=== PATIENT | male | born 1980 | race Caucasian/White ===

== ENCOUNTER 2016-11-03 11:44 | Emergency (ER) | payer BC ==
[2016-11-03 12:03] VITALS: BP 115/76; PULSE 94; TEMP 98.4; BMI 56.2
--- NOTE | 2016-11-03 12:31 | PDOC ---
History of Present Illness - General Chief Complaint: Edema Stated Complaint: SWOLLEN LOWER LIP Time Seen by Provider: 11/03/16 11:57 History Source: Patient Exam Limitations: No Limitations - History of Present Illness Initial Comments: 11/03/16 12:21 This is a 36-year-old male with no significant past medical history who presents emergency department with a complaint of upper lip swelling. Patient states he was in his usual state of health last night, awoke this morning with swelling of his lower lip. Patient denies globus sensation in his throat, denies drooling, denies nausea, denies vomiting. Patient denies stridor, difficulty breathing. Patient denies or urticarial rash. Patient denies new foods although states last night he had M&M's with peanuts, paresis. Better PTdenies any bug bites. Patient does have a history of seasonal ALLERGIES PMH: Denies PSH: Denies Meds: Denies ALL: Penicillin --> Urticaria Social: denies drugs or cigarettes GENERAL/CONSTITUTIONAL: No: fever, chills, weakness, loss of appetite. HEAD, EYES, EARS, NOSE AND THROAT: No: change in vision, ear pain, discharge, sore throat, throat swelling. CARDIOVASCULAR: No: chest pain, lightheadedness, palpitations, syncope RESPIRATORY: No: cough, shortness of breath, wheezing, hemoptysis, stridor. GASTROINTESTINAL: No: nausea, vomiting, diarrhea, abdominal cramping, rectal bleeding, constipation. GENITOURINARY: No: dysuria, hematuria, frequency, urgency, flank pain. MUSCULOSKELETAL: No: back pain, neck pain, joint pain, muscle swelling or pain SKIN: Yes: lip swelling No: lesions, pallor, rash or easy bruising. NEUROLOGIC: No: headache, vertigo, paresthesias, weakness ENDOCRINE: No: unexplained weight gain or loss HEMATOLOGIC/LYMPHATIC: No: anemia, easy bleeding, swelling nodes. GENERAL: The patient is in no acute distress, no respiratory distress. HEAD: Normal with no signs of trauma. EYES: PERRLA, EOMI, sclera anicteric, conjunctiva clear. ENT: Uvula midline, no tongue or pharyngeal edema, no stridor, no difficulty speaking NECK: Normal range of motion, supple LUNGS: Breath sounds equal, clear to auscultation bilaterally. No wheezes. HEART:Regular rate and rhythm, normal S1 and S2 without murmur, rub or gallop. ABDOMEN: Soft, nontender, normoactive bowel sounds. No guarding, no rebound. No masses palpable. EXTREMITIES: Normal range of motion, no edema. No clubbing or cyanosis. No erythema, or tenderness. NEUROLOGICAL: Cranial nerves II through XII grossly intact. Normal speech. No focal neurological deficits. MUSCULOSKELETAL: Back non-tender to palpation, no CVA tenderness SKIN: No urticarial lesions, upper and lower lip swelling, no lacerations Past History - Past Medical History Allergies/Adverse Reactions: Allergies Allergy/AdvReac Type Severity Reaction Status Date / Time Penicillins Allergy Mild "hives-pimp Verified 11/03/16 12:05 les" Home Medications: Ambulatory Orders Sulfamethoxazole/Trimethoprim [Bactrim *Ds*] 1 tab PO BID #14 tablet 08/13/14 Diphenhydramine [Benadryl -] 50 mg PO TID PRN #30 capsule 11/03/16 Oxycodone HCl [Roxicodone] 15 mg PO BID 11/03/16 Prednisone [Deltasone] 60 mg PO DAILY #12 tablet 11/03/16 Anemia: No Asthma: No Cancer: No Cardiac Disorders: No CVA: No COPD: No CHF: No Dementia: No Diabetes: No GI Disorders: Yes (OBESITY) Disorders: No HTN: No Hypercholesterolemia: No Liver Disease: No Seizures: No Thyroid Disease: No - Surgical History Abdominal Surgery: No Appendectomy: No Cardiac Surgery: No Cholecystectomy: No Lung Surgery: No Neurologic Surgery: No Orthopedic Surgery: Yes (right knee sx) - Family Disease History Family Disease History: Heart Disease: Mother (CHF) - Immunization History Immunization Up to Date: Yes - Psycho/Social/Smoking Cessation Hx Anxiety: No Suicidal Ideation: No Smoking Status: Yes Smoking History: Never smoked Have you smoked in the past 12 months: No Number of Cigarettes Smoked Daily: 4 If you are a former smoker, when did you quit?: 11/05/13 Information on smoking cessation initiated: No Hx Alcohol Use: No Drug/Substance Use Hx: No Substance Use Type: None Hx Substance Use Treatment: No *Physical Exam - Vital Signs Last Vital Signs Temp Pulse Resp BP Pulse Ox 98.4 F 94 H 18 115/76 100 11/03/16 11:46 11/03/16 11:46 11/03/16 11:46 11/03/16 11:46 11/03/16 11:46 Medical Decision Making - Medical Decision Making 11/03/16 12:26 This is a 36 yo M presenting to the ER with a complaint of lip swelling Pt is not on an Pola inhibitor He has not prior history of similar symptoms in the past (?hereditary angioedema ) Pt has no prior history of peanut or other allergy Will treat with corticosteroids and benadryl Pt asked to follow up with pmd today or tomorrow Pt given strict return precautions *DC/Admit/Observation/Transfer Diagnosis at time of Disposition: Lip swelling - Discharge Dispostion Disposition: HOME Condition at time of disposition: Stable Admit: No - Referrals Referrals: Reji Covington MD [Staff Physician] - - Patient Instructions Printed Discharge Instructions: DI for General Allergic Reactions Additional Instructions: Sheng Thank you for coming to the ER today Please take medications as prescribed PLEASE MONITOR YOURSELF FOR ANY PROGRESSION OF SYMPTOMS IF SO, YOU MUST RETURN TO THE ER FOR RE EVALUATION AT ANY TIME THIS INCLUDES TONGUE SWELLING, FULLNESS WHEN SWALLOWING, DIFFICULTY SWALLOWING, DIFFICULTY BREATHING, UVULA SWELLING, or anything that makes you concerned You must see your doctor homer (tomorrow preferably) You will need further evaluation to determine if this is an allergic reaction or a hereditary issue - Post Discharge Activity Work/School Note: Back to Work
== END 2016-11-03 13:00 | disposition home or self-care (01) ==
LOC: FER 11:44
DX: R22.0 Localized swelling, mass and lump, head (principal); Z72.0 Tobacco use; E66.9 Obesity, unspecified; Z68.43 Body mass index [BMI] 50.0-59.9, adult
CPT/HCPCS: 99282-25

== ENCOUNTER 2016-12-03 19:03 | Emergency (ER) | payer BC ==
[2016-12-03 19:10] VITALS: BP 152/87; PULSE 94; TEMP 97.7; BMI 51.1
[2016-12-03] MEDS ORDERED: LORATADINE 10 MG TABLET PO ONE (19:47)
[2016-12-03] MEDS ORDERED: LORATADINE 10 MG TABLET ONE (19:50)
--- NOTE | 2016-12-03 19:52 | PDOC ---
History of Present Illness - General Chief Complaint: Rash Stated Complaint: HEADACHE Time Seen by Provider: 12/03/16 19:28 History Source: Patient Exam Limitations: No Limitations - History of Present Illness Initial Comments: 12/03/16 19:55 Chief complaint: Itchiness and burning sensation in back of head and slight swelling under her left eye History of present illness: Patient is a 36 year old obese male here today complaining of burning and itchy sensation to the back of his head that started earlier today and he was home. Patient denies that anyone else in his home has been itchy. Patient denies leaning his head against anything except on his bed. She also has slight swelling under his left eye but denies any sneezing, nasal congestion, or any photophobia or any discharge from eyes. Patient has an appointment with an plastic sheeting cutter in 2 weeks at [facility] due to having had intermittent rashes and swelling of his lips. Patient does not have any swelling currently of his lips or any difficulty swallowing or breathing. Patient denies any new cosmetics, lotions, or medications or any new clothing. He last had swelling of his lips last week. Patient is aware that he is allergic to peanuts denies eating any peanuts or using any Sulaiman products and it today. Timing/Duration: getting worse (burning and itchiness back of head) Severity: mild Associated Symptoms: reports: rash (back of head, under left eye puffiness) Past History - Past Medical History Allergies/Adverse Reactions: Allergies Allergy/AdvReac Type Severity Reaction Status Date / Time Penicillins Allergy Mild "hives-pimp Verified 12/03/16 19:09 les" Home Medications: Ambulatory Orders Sulfamethoxazole/Trimethoprim [Bactrim DS -] 1 tab PO BID #14 tablet 08/13/14 Diphenhydramine [Benadryl Capsule -] 50 mg PO TID PRN #30 capsule 11/03/16 Oxycodone HCl [Roxicodone] 15 mg PO BID 11/03/16 Prednisone [Deltasone] 60 mg PO DAILY #12 tablet 11/03/16 Fexofenadine HCl [Moraima Allergy] 180 mg PO DAILY #10 tablet 12/03/16 Anemia: No Asthma: No Cancer: No Cardiac Disorders: No CVA: No COPD: No CHF: No Dementia: No Diabetes: No GI Disorders: Yes (OBESITY) Disorders: No HTN: No Hypercholesterolemia: No Liver Disease: No Seizures: No Thyroid Disease: No - Surgical History Abdominal Surgery: No Appendectomy: No Cardiac Surgery: No Cholecystectomy: No Lung Surgery: No Neurologic Surgery: No Orthopedic Surgery: Yes (right knee sx) - Family Disease History Family Disease History: Heart Disease: Mother (CHF) - Immunization History Immunization Up to Date: Yes - Psycho/Social/Smoking Cessation Hx Anxiety: No Suicidal Ideation: No Smoking Status: Yes Smoking History: Never smoked Have you smoked in the past 12 months: No Number of Cigarettes Smoked Daily: 4 If you are a former smoker, when did you quit?: 11/05/13 Hx Alcohol Use: No Drug/Substance Use Hx: No Substance Use Type: None Hx Substance Use Treatment: No Review of Systems - Review of Systems Able to Perform ROS?: Yes Constitutional: No: Symptoms Reported HEENTM: No: Symptoms Reported Respiratory: No: Symptoms reported Cardiac (ROS): No: Symptoms Reported ABD/GI: No: Symptoms Reported : No: Symptoms Reported Musculoskeletal: No: Symptoms Reported Integumentary: Yes: Erythema (lower occipital scalp, none raised ), Other ( slight edema left infraorbital ) Neurological: No: Symptoms reported *Physical Exam - Vital Signs Last Vital Signs Temp Pulse Resp BP Pulse Ox 97.7 F 94 H 18 152/87 97 12/03/16 19:06 12/03/16 19:06 12/03/16 19:06 12/03/16 19:06 12/03/16 19:06 - Physical Exam General Appearance: Yes: Appropriately Dressed HEENT: positive: Normal ENT Inspection Neck: negative: Lymphadenopathy (R), Lymphadenopathy (L) Respiratory/Chest: positive: Lungs Clear, Normal Breath Sounds. negative: Chest Tender, Respiratory Distress Cardiovascular: positive: Regular Rhythm, Regular Rate, S1, S2 Integumentary: positive: Erythema (across proximal occipital scalp none raised, ), Swelling (minimal left infraorbital area) Neurologic: positive: Alert, Normal Response, Responsive Medical Decision Making - Medical Decision Making 12/03/16 19:58 Patient is a 36 year old obese male here today complaining of burning and itchy sensation to the back of his head that started earlier today and he was home. Patient denies that anyone else in his home has been itchy. Patient denies leaning his head against anything except on his bed. She also has slight swelling under his left eye but denies any sneezing, nasal congestion, or any photophobia or any discharge from eyes. Patient has an appointment with an plastic sheeting cutter in 2 weeks at [facility] due to having had intermittent rashes and swelling of his lips. Patient does not have any swelling currently of his lips or any difficulty swallowing or breathing. Patient denies any new cosmetics, lotions, or medications or any new clothing. He last had swelling of his lips last week. Patient is aware that he is allergic to peanuts denies eating any peanuts or using any [employer]aiman products and it today. He denies giving any recent haircuts or using any new shampoos. Patient currently is driving. contact dermatitis occipital scalp PLAN: claritin 10 mg daily now moraima 180 mg daily for 10 days Itchiness continues patient was instructed that he can use Benadryl every 4-6 hours as needed for itchiness *DC/Admit/Observation/Transfer Diagnosis at time of Disposition: Dermatitis, contact Qualifiers: Contact dermatitis type: unspecified Contact dermatitis trigger: unspecified trigger Qualified Code(s): L25.9 - Unspecified contact dermatitis, unspecified cause - Discharge Dispostion Disposition: HOME Condition at time of disposition: Stable - Referrals Referrals: Erica Cuello MD [Primary Care Provider] - Reji Covington MD [Staff Physician] - - Patient Instructions Additional Instructions: Follow up with plastic sheeting cutter as soon as possible Return to emergency room if any difficulty swallowing or breathing you may take benadryl as needed as directed by wool fleece grader for itchiness Patient voiced understanding of discharge instructions and all questions were answered
== END 2016-12-03 20:07 | disposition home or self-care (01) ==
LOC: JERFT 19:03
DX: L25.9 Unspecified contact dermatitis, unspecified cause (principal)
CPT/HCPCS: 99281-25

== ENCOUNTER 2016-12-08 23:04 | Emergency (ER) | payer BC ==
[2016-12-08 23:24] VITALS: BP 146/81; PULSE 92; TEMP 97.6; BMI 50.1
[2016-12-09] MEDS ORDERED: diphenhydrAMINE HCL 25 MG CAPSULE (FP) PO ONE ×2 (00:45→00:56)
--- NOTE | 2016-12-09 00:45 | PDOC ---
History of Present Illness - General Chief Complaint: Eye Problem Stated Complaint: EYE PROBLEM Time Seen by Provider: 12/09/16 00:02 - History of Present Illness Initial Comments: 12/09/16 00:45 CHIEF COMPLAINT: eye swelling HISTORY OF PRESENT ILLNESS: 36 yo M with hx of herniated discs presents to ED with left eye swelling since today. Patient reports seeing his primary care doctor today for a "rash on my stomach" and "she was going to prescribe me a cream but she didn't because it has penicillin in it." Later in the evening he noticed his eye swelling. He denies any pain or change in vision. He denies any new medications. PAST MEDICAL HISTORY: Denies past medical history FAMILY HISTORY: Denies SOCIAL HISTORY: Denies tobacco, alcohol, illicit drug use. SURGICAL HISTORY: Denies ALLERGIES: PCN REVIEW OF SYSTEMS General/Constitutional: Denies fever or chills. Denies weakness, weight change. HEENT: Left eye swelling. Denies change in vision. Denies ear pain or discharge. Denies sore throat. Cardiovascular: Denies chest pain or shortness of breath. Respiratory: Denies cough, wheezing, or hemoptysis. Gastrointestinal: Denies nausea, vomiting, diarrhea or constipation. Denies rectal bleeding. Genitourinary: Denies dysuria, frequency, or change in urination. Musculoskeletal: Denies joint or muscle swelling or pain. Denies neck or back pain. Skin: "Rash to my stomach since yesterday." PHYSICAL EXAM General Appearance: Well-appearing, appropriately dressed. No apparent distress. HEENT: Edema inferior to left eye. EOMI, PERRLA, normal ENT inspection, normal voice, TMs normal, pharynx normal. No conjunctival pallor. No photophobia, scleral icterus. Neck: Supple. Trachea midline. No tenderness, rigidity, carotid bruit, stridor , lymphadenopathy, or thyromegaly. Respiratory/Chest: Lungs CTAB. Cardiovascular: RRR. S1, S2. Musculoskeletal/Extremities: Normal inspection. FROM of all extremities, normal capillary refill. Pelvis Stable. No CVA tenderness. No tenderness to extremities, pedal edema, swelling, erythema or deformity. Integumentary: Erythematous rash to right lower abdomen. Appropriate color, dry , warm. Neurologic: undertaker assistant II-XII intact. Fully oriented, alert. Appropriate mood/affect. Motor strength 5/5. No appreciable EOM palsy, facial droop or sensory deficit. 12/09/16 00:52 Past History - Past Medical History Allergies/Adverse Reactions: Allergies Allergy/AdvReac Type Severity Reaction Status Date / Time Penicillins Allergy Mild "hives-pimp Verified 12/03/16 19:09 les" Home Medications: Ambulatory Orders Sulfamethoxazole/Trimethoprim [Bactrim DS -] 1 tab PO BID #14 tablet 08/13/14 Diphenhydramine [Benadryl Capsule -] 50 mg PO TID PRN #30 capsule 11/03/16 Oxycodone HCl [Roxicodone] 15 mg PO BID 11/03/16 Fexofenadine HCl [Ce Allergy] 180 mg PO DAILY #10 tablet 12/03/16 Diphenhydramine HCl [Benadryl -] 25 mg PO Q6H PRN #28 capsule 12/09/16 Prednisone [Deltasone] 60 mg PO DAILY #12 tablet 12/09/16 Anemia: No Asthma: No Cancer: No Cardiac Disorders: No CVA: No COPD: No CHF: No Dementia: No Diabetes: No GI Disorders: Yes (OBESITY) Disorders: No HTN: No Hypercholesterolemia: No Liver Disease: No Seizures: No Thyroid Disease: No - Surgical History Abdominal Surgery: No Appendectomy: No Cardiac Surgery: No Cholecystectomy: No Lung Surgery: No Neurologic Surgery: No Orthopedic Surgery: Yes (right knee sx) - Family Disease History Family Disease History: Heart Disease: Mother (CHF) - Immunization History Immunization Up to Date: Yes - Psycho/Social/Smoking Cessation Hx Anxiety: No Suicidal Ideation: No Smoking Status: Yes Smoking History: Never smoked Have you smoked in the past 12 months: No Number of Cigarettes Smoked Daily: 4 If you are a former smoker, when did you quit?: 11/05/13 Hx Alcohol Use: No Drug/Substance Use Hx: No Substance Use Type: None Hx Substance Use Treatment: No *Physical Exam - Vital Signs Last Vital Signs Temp Pulse Resp BP Pulse Ox 97.6 F 92 H 18 146/81 100 12/08/16 23:20 12/08/16 23:20 12/08/16 23:20 12/08/16 23:20 12/08/16 23:20 Medical Decision Making - Medical Decision Making 12/09/16 00:53 36 yo M with hx of herniated discs presents to ED with left eye swelling since today. Discussed case with attending ER MD Lee. Eye swelling appears secondary to allergy. Will rx Benadryl and prednisone. Advised patient to take medication as prescirbed and f/u with PCP and opthalmology. Patient verbalized understanding and agrees to plan. *DC/Admit/Observation/Transfer Diagnosis at time of Disposition: Allergic eye reaction - Discharge Dispostion Disposition: HOME Condition at time of disposition: Stable Admit: No - Prescriptions Prescriptions: Diphenhydramine HCl [Benadryl -] 25 mg PO Q6H PRN #28 capsule PRN Reason: allergic eye reaction Prednisone [Deltasone] 60 mg PO DAILY #12 tablet - Referrals Referrals: Erica Cuello MD [Primary Care Provider] - Minh Evangelista MD [Staff Physician] - - Patient Instructions Printed Discharge Instructions: DI for Conjunctivitis Additional Instructions: Please follow up with your primary care doctor. If your symptoms persist, please follow up with opthalmology (referral provided). If you experience any headache, pain in your eye, change in vision, dizziness, or any new or worsening symptoms, please return to the ER. - Post Discharge Activity Work/School Note: Back to Work
[2016-12-09] MEDS ORDERED: predniSONE 20 MG TABLET (UD) PO ONE (00:46)
--- NOTE | 2016-12-09 00:47 | PDOC ---
*Physical Exam - Vital Signs Last Vital Signs Temp Pulse Resp BP Pulse Ox 97.6 F 92 H 18 146/81 100 12/08/16 23:20 12/08/16 23:20 12/08/16 23:20 12/08/16 23:20 12/08/16 23:20 Medical Decision Making - Medical Decision Making 12/09/16 00:47 agree with care from MARIE Lux *DC/Admit/Observation/Transfer Diagnosis at time of Disposition: Allergic eye reaction - Discharge Dispostion Disposition: HOME Condition at time of disposition: Stable - Prescriptions Prescriptions: Diphenhydramine HCl [Benadryl -] 25 mg PO Q6H PRN #28 capsule PRN Reason: allergic eye reaction Prednisone [Deltasone] 60 mg PO DAILY #12 tablet - Referrals Referrals: Minh Evangelista MD [Staff Physician] - Erica Cuello MD [Primary Care Provider] - - Patient Instructions Printed Discharge Instructions: DI for Conjunctivitis Additional Instructions: Please follow up with your primary care doctor. If your symptoms persist, please follow up with opthalmology (referral provided). If you experience any headache, pain in your eye, change in vision, dizziness, or any new or worsening symptoms, please return to the ER. - Post Discharge Activity Work/School Note: Back to Work
[2016-12-09] MEDS ORDERED: predniSONE 20 MG TABLET (UD) ONE (00:56)
== END 2016-12-09 01:04 | disposition home or self-care (01) ==
LOC: JER 23:04
DX: T78.49XA Other allergy, initial encounter (principal); X58.XXXA Exposure to other specified factors, initial encounter; Y93.9 Activity, unspecified; E66.9 Obesity, unspecified; Z68.43 Body mass index [BMI] 50.0-59.9, adult; Z87.891 Personal history of nicotine dependence
CPT/HCPCS: 99281-25

== ENCOUNTER 2017-05-12 14:25 | Emergency (ER) | payer OTHER, BC ==
[2017-05-12 14:30] VITALS: BP 165/99; PULSE 84; TEMP 98.6; BMI 51.0
--- NOTE | 2017-05-12 15:29 | PDOC ---
History of Present Illness - General Chief Complaint: Back Pain Stated Complaint: LOWER BACK/LEG PAIN Time Seen by Provider: 05/12/17 15:18 History Source: Patient Exam Limitations: No Limitations - History of Present Illness Initial Comments: 05/12/17 15:27 37 yr male with chronic low back pain followed by pain management. Pt states he had epidural 4 days ago states he has no relief from pain. Pt admits to taking more percocet than prescribed for pain. Pt denies urine or bowel dysfunction. neg numbness or tingling to legs. Pt denies any medical history. or allergies. Past History - Past Medical History Allergies/Adverse Reactions: Allergies Allergy/AdvReac Type Severity Reaction Status Date / Time Penicillins Allergy Mild "hives-pimp Verified 05/12/17 14:27 les" Home Medications: Ambulatory Orders Diphenhydramine [Benadryl Capsule -] 50 mg PO TID PRN #30 capsule 11/03/16 Oxycodone HCl [Roxicodone] 15 mg PO BID 11/03/16 Prednisone [Deltasone] 60 mg PO DAILY #12 tablet 12/09/16 Lidocaine 5% Patch [Lidoderm -] 1 patch TP DAILY #7 patch 05/12/17 Methylprednisolone [Medrol Dose Babar] 4 mg PO ASDIR #21 tablet 05/12/17 Anemia: No Asthma: No Cancer: No Cardiac Disorders: No CVA: No COPD: No CHF: No Dementia: No Diabetes: No GI Disorders: Yes (OBESITY morbid) Disorders: No HTN: No Hypercholesterolemia: No Liver Disease: No Seizures: No Thyroid Disease: No Other medical history: back problems - Surgical History Abdominal Surgery: No Appendectomy: No Cardiac Surgery: No Cholecystectomy: No Lung Surgery: No Neurologic Surgery: No Orthopedic Surgery: Yes (right knee sx) - Family Disease History Family Disease History: Heart Disease: Mother (CHF) - Immunization History Immunization Up to Date: Yes - Suicide/Smoking/Psychosocial Hx Smoking Status: Yes Smoking History: Never smoked Have you smoked in the past 12 months: No Number of Cigarettes Smoked Daily: 4 If you are a former smoker, when did you quit?: 11/05/13 Information on smoking cessation initiated: No Hx Alcohol Use: No Drug/Substance Use Hx: No Substance Use Type: None Hx Substance Use Treatment: No Trauma Specific PMHX - Complaint Specific PMHX Back Injury: Yes Neck Injury: Yes Review of Systems - Review of Systems Able to Perform ROS?: Yes Is the patient limited Yakut proficient: No Constitutional: No: Symptoms Reported HEENTM: No: Symptoms Reported Respiratory: No: Symptoms reported Cardiac (ROS): No: Symptoms Reported ABD/GI: No: Symptoms Reported : No: Symptoms Reported Musculoskeletal: Yes: See HPI, Back Pain, Neck Pain *Physical Exam - Vital Signs Last Vital Signs Temp Pulse Resp BP Pulse Ox 98.6 F 84 18 165/99 100 05/12/17 14:29 05/12/17 14:29 05/12/17 14:29 05/12/17 14:29 05/12/17 14:29 - Physical Exam General Appearance: Yes: Nourished, Appropriately Dressed HEENT: positive: EOMI, NILES Neck: negative: Tender Respiratory/Chest: positive: Lungs Clear, Normal Breath Sounds. negative: Chest Tender Cardiovascular: positive: Regular Rhythm, Regular Rate Gastrointestinal/Abdominal: positive: Normal Bowel Sounds, Soft Rectal Exam: positive: deferred Musculoskeletal: positive: Normal Inspection, Vertebral Tenderness (paralumbar spine L5, L6 no rash, no redness or swelling ). negative: CVA Tenderness, CVA Tenderness (R), CVA Tenderness (L), Decreased Range of Motion Extremity: positive: Normal Capillary Refill, Normal Inspection, Normal Range of Motion Integumentary: positive: Normal Color, Dry, Warm Neurologic: positive: Fully Oriented, Alert, Normal Mood/Affect, Normal Response , Motor Strength 5/5 Medical Decision Making - Medical Decision Making 05/12/17 16:14 cc: acute on chronic low back and neck pain followed by pain management pt trying to wean himself off roxicodone taking 4 pills a day instead of 6 or 7 no signs of withdrawl. will give toradol and dc onmedrol dose pack and lidocaine patches at pt request for the patches Pt has no saddle anesthesia no urine or bowel complaints. pt is ambulatory no acute distress. *DC/Admit/Observation/Transfer Diagnosis at time of Disposition: Back pain at L4-L5 level - Discharge Dispostion Disposition: HOME Condition at time of disposition: Good - Prescriptions Prescriptions: Lidocaine 5% Patch [Lidoderm -] 1 patch TP DAILY #7 patch Methylprednisolone [Medrol Dose Babar] 4 mg PO ASDIR #21 tablet - Referrals Referrals: Erica Cuello MD [Primary Care Provider] - - Patient Instructions Additional Instructions: start the medrol dose pack today heating pad, warm compresses , icy Hot patches (over the counter) to lower back follow with your primary care doctor regarding a diet and exercise program that can help with your low back pain - Post Discharge Activity Forms/Work/School Notes: Back to Work
[2017-05-12] MEDS ORDERED: KETOROLAC TROMETHAMINE 60 MG/2 ML VIAL ONE (15:35)
== END 2017-05-12 16:16 | disposition home or self-care (01) ==
LOC: JERFT 14:25
PROC: 3E0233Z Introduction of Anti-inflammatory into Muscle, Percutaneous Approach (ICD-10-PCS; principal; 2017-05-12)
DX: M54.5 Low back pain (principal); G89.29 Other chronic pain; E66.01 Morbid (severe) obesity due to excess calories; Z68.43 Body mass index [BMI] 50.0-59.9, adult
CPT/HCPCS: 99281-25

== ENCOUNTER 2017-10-10 13:50 | Emergency (ER) | payer BC, OTHER ==
[2017-10-10 13:57] VITALS: TEMP 97.5; BMI 48.1
[2017-10-10] MEDS ORDERED: SODIUM CHLORIDE 0.9% 1000 ML INFUS.BAG IV ONE (14:30)
[2017-10-10] MEDS ORDERED: ONDANSETRON 4 MG/2 ML VIAL IVPUSH ONE (14:30)
[2017-10-10] MEDS ORDERED: ACETAMINOPHEN 1000 MG/100 ML VIAL (NON FORMULARY) IVPB ONE (14:49)
[2017-10-10] MEDS ORDERED: ALBUTEROL SO4 2.5/IPRATROPIUM 0.5 INH SOL 3 ML VIAL.NEB. NEB ONE ×2 (14:49→15:06)
[2017-10-10] MEDS ORDERED: ACETAMINOPHEN INJECTION 100 ML IVPB ONE (15:06)
[2017-10-10] MEDS ORDERED: ONDANSETRON 4 MG/2 ML VIAL ONE (15:06)
[2017-10-10 15:41] LABS: BASO % 0.7 % (0-2.0); EOS % 1.9 % (0-4.5); HEMOGLOBIN 12.9 GM/dL (11.7-16.9); LYMPH % 22.1 % (8-40); MCH 28.9 pg (25.7-33.7); MCHC 33.9 g/dl (32.0-35.9); MEAN CELL VOLUME 85.2 fl (80-96); MEAN PLT VOLUME 8.7 fl (7.5-11.1); MONO % 6.5 % (3.8-10.2); NEUT % 68.8 % (42.8-82.8); PLATELET COUNT 198 K/MM3 (134-434); RBC 4.46 M/mm3 (4.00-5.60); RDW 14.4 % (11.9-15.9); WHITE BLOOD COUNT 6.5 K/mm3 (4.0-10.0)
[2017-10-10 16:05] LABS: ALBUMIN 3.1 g/dl (3.4-5.0); ALK PHOS 76 U/L (45-117); ANION GAP 5 (8-16); BILIRUBIN,TOTAL 0.2 mg/dL (0.2-1.0); BLOOD UREA NITROGEN 19 mg/dL (7-18); CALCIUM 7.9 mg/dL (8.5-10.1); CHLORIDE 104 mmol/L (98-107); CO2 31 mmol/L (21-32); CREATININE 0.6 mg/dL (0.7-1.3); GLUCOSE,RANDOM 95 mg/dL (74-106); POTASSIUM 4.2 mmol/L (3.5-5.1); SGOT/AST 13 U/L (15-37); SGPT/ALT 19 U/L (12-78); SODIUM 140 mmol/L (136-145); TOT PROT 6.5 g/dl (6.4-8.2)
--- NOTE | 2017-10-10 16:21 | PDOC ---
History of Present Illness - General History Source: Patient Exam Limitations: No Limitations - History of Present Illness Initial Comments: 10/10/17 16:22 The patient is a 37-year-old male with a significant past medical history of chronic bronchitis and back pain, who presents to the emergency department with worsening right-sided abdominal and chest wall pain and hemoptysis since yesterday. He states he has had this pain along the right side of his abdomen and chest wall for one or two weeks, but states it worsened yesterday. He describes the pain as stabbing, 8/10 in severity, and exacerbated by movements. He also reports 5 episodes of hemoptysis of dark blood yesterday. He states nothing alleviates the pain. The patient denies chest pain, shortness of breath, pleuritic pain, lower extremity edema, headache and dizziness. The patient denies fever, nausea, vomit , diarrhea and constipation. The patient denies dysuria, frequency, urgency and hematuria. He denies any recent trauma or recent travel. Allergies: penicillin Social History: current smoker, no other toxic habits reported PCP: Dr. Nilam Campos <Candy Gallegos - Last Filed: 10/10/17 16:22> <Sukumar Dominguez - Last Filed: 10/10/17 17:21> - General Chief Complaint: Vomiting Blood Stated Complaint: RT SIDE PAIN Time Seen by Provider: 10/10/17 14:25 Past History <Candy Gallegos - Last Filed: 10/10/17 16:22> - Past Medical History Anemia: No Asthma: No Cancer: No Cardiac Disorders: No CVA: No COPD: No CHF: No Dementia: No Diabetes: No GI Disorders: Yes (OBESITY morbid) Disorders: No HTN: No Hypercholesterolemia: No Liver Disease: No Seizures: No Thyroid Disease: No Other medical history: herniated disc - Surgical History Abdominal Surgery: No Appendectomy: No Cardiac Surgery: No Cholecystectomy: No Lung Surgery: No Neurologic Surgery: No Orthopedic Surgery: Yes (right knee sx) - Family Disease History Family Disease History: Heart Disease: Mother (CHF) - Immunization History Immunization Up to Date: Yes - Suicide/Smoking/Psychosocial Hx Smoking Status: Yes Smoking History: Never smoked Have you smoked in the past 12 months: No Number of Cigarettes Smoked Daily: 4 If you are a former smoker, when did you quit?: 11/05/13 Information on smoking cessation initiated: No Hx Alcohol Use: No Drug/Substance Use Hx: No Substance Use Type: None Hx Substance Use Treatment: No <Sukumar Dominguez - Last Filed: 10/10/17 17:21> - Past Medical History Allergies/Adverse Reactions: Allergies Allergy/AdvReac Type Severity Reaction Status Date / Time Penicillins Allergy Mild "hives-pimp Verified 10/10/17 13:53 les" Home Medications: Ambulatory Orders Azithromycin 250 mg PO DAILY #4 tablet 10/10/17 Azithromycin 500 mg PO DAILY #1 tablet 10/10/17 Cyclobenzaprine HCl [Flexeril 10 mg] 10 mg PO BID 10/10/17 Review of Systems - Review of Systems Able to Perform ROS?: Yes Comments:: 10/10/17 16:22 A complete review of 10 out of 10 review of systems is taken and is negative apart from what is previously mentioned below and in the HPI. <Candy Gallegos - Last Filed: 10/10/17 16:22> *Physical Exam - Vital Signs Last Vital Signs Temp Pulse Resp BP Pulse Ox 97.5 F L 97 H 20 158/88 97 10/10/17 13:54 10/10/17 13:54 10/10/17 13:54 10/10/17 13:54 10/10/17 13:54 - Physical Exam Comments: 10/10/17 16:22 Vitals: Triage Vital signs reviewed General Appearance: no acute distress, well nourished well developed, Head: Atraumatic, normocephalic Throat: Mucous membranes moist, Cardiac: Regular rate and rhythm, no murmurs, no rubs, no gallops, Lungs: (+) Coarse breath sounds, no wheezing, no rales, no crackles Abdomen: Soft, nondistended, normal bowel sounds, (+) Mild RUQ tenderness to palpation Extremities: Full range of motion to all extremities, no cyanosis, clubbing, or edema Skin: Warm and dry, no rashes or lesions, no petechiae Psych: normal mood, normal affect <Candy Gallegos - Last Filed: 10/10/17 16:22> - Vital Signs Last Vital Signs Temp Pulse Resp BP Pulse Ox 97.5 F L 97 H 20 158/88 97 10/10/17 13:54 10/10/17 13:54 10/10/17 13:54 10/10/17 13:54 10/10/17 13:54 <Sukumar Dominguez - Last Filed: 10/10/17 17:21> ED Treatment Course - LABORATORY CBC & Chemistry Diagram: 10/10/17 15:08 10/10/17 15:08 - ADDITIONAL ORDERS Additional order review: Laboratory Results 10/10/17 15:08 Sodium 140 Potassium 4.2 Chloride 104 Carbon Dioxide 31 Anion Gap 5 L BUN 19 H D Creatinine 0.6 L Creat Clearance w eGFR > 60 Random Glucose 95 Calcium 7.9 L Total Bilirubin 0.2 D AST 13 L D ALT 19 Alkaline Phosphatase 76 Total Protein 6.5 Albumin 3.1 L 10/10/17 15:08 RBC 4.46 MCV 85.2 MCHC 33.9 RDW 14.4 MPV 8.7 Neutrophils % 68.8 Lymphocytes % 22.1 Monocytes % 6.5 Eosinophils % 1.9 D Basophils % 0.7 - Medications Given in the ED: ED Medications Discontinued Medications Generic Name Dose Route Start Last Admin Trade Name Latosha PRN Reason Stop Dose Admin Acetaminophen 1,000 mg 10/10/17 14:49 10/10/17 15:14 Ofirmev Injection - IVPB 10/10/17 14:50 1,000 mg ONCE ONE Administration Albuterol/Ipratropium 1 amp 10/10/17 14:49 10/10/17 15:14 Duoneb - NEB 10/10/17 14:50 1 amp ONCE ONE Administration Ondansetron HCl 4 mg 10/10/17 14:30 10/10/17 15:14 Zofran Injection IVPUSH 10/10/17 14:31 4 mg ONCE ONE Administration Sodium Chloride 1,000 ml 10/10/17 14:30 10/10/17 15:59 Normal Saline - IV 10/10/17 14:31 1,000 ml ONCE ONE Administration <Candy Gallegos - Last Filed: 10/10/17 16:22> - LABORATORY CBC & Chemistry Diagram: 10/10/17 15:08 10/10/17 15:08 - ADDITIONAL ORDERS Additional order review: Laboratory Results 10/10/17 15:08 Sodium 140 Potassium 4.2 Chloride 104 Carbon Dioxide 31 Anion Gap 5 L BUN 19 H D Creatinine 0.6 L Creat Clearance w eGFR > 60 Random Glucose 95 Calcium 7.9 L Total Bilirubin 0.2 D AST 13 L D ALT 19 Alkaline Phosphatase 76 Total Protein 6.5 Albumin 3.1 L 10/10/17 15:08 RBC 4.46 MCV 85.2 MCHC 33.9 RDW 14.4 MPV 8.7 Neutrophils % 68.8 Lymphocytes % 22.1 Monocytes % 6.5 Eosinophils % 1.9 D Basophils % 0.7 - RADIOLOGY Radiology Studies Ordered: Category Date Time Status CHEST PA & LAT [RAD] Stat Radiology 10/10/17 14:35 Taken ABDOMEN US -LIMITED [US] Stat Ultrasound 10/10/17 14:51 Completed - Medications Given in the ED: ED Medications Discontinued Medications Generic Name Dose Route Start Last Admin Trade Name Latosha PRN Reason Stop Dose Admin Acetaminophen 1,000 mg 10/10/17 14:49 10/10/17 15:14 Ofirmev Injection - IVPB 10/10/17 14:50 1,000 mg ONCE ONE Administration Albuterol/Ipratropium 1 amp 10/10/17 14:49 10/10/17 15:14 Duoneb - NEB 10/10/17 14:50 1 amp ONCE ONE Administration Ondansetron HCl 4 mg 10/10/17 14:30 10/10/17 15:14 Zofran Injection IVPUSH 10/10/17 14:31 4 mg ONCE ONE Administration Sodium Chloride 1,000 ml 10/10/17 14:30 10/10/17 15:59 Normal Saline - IV 10/10/17 14:31 1,000 ml ONCE ONE Administration <Sukumar Dominguez - Last Filed: 10/10/17 17:21> Medical Decision Making - Medical Decision Making 10/10/17 16:36 37 years old no PE DVT risk factors presents with a few episodes of hemoptysis yesterday and right-sided rib and abdominal pain. Labs within normal limits d- dimer negative unable to r/o with PERC given hemoptysis. Ultrasound and chest xray demonstrates no pathology likely musculoskeletal pain from coughing We'll treat with Z-Babar Tylenol for pain given the patient is a smoker with history of bronchitis patient will follow-up with his primary care provider 1-2 days. Return to the emergency department for any severe worsening symptoms or for any concerns. <Sukumar Dominguez - Last Filed: 10/10/17 17:21> *DC/Admit/Observation/Transfer - Attestations Scribe Attestion: 10/10/17 16:22 Documentation prepared by Candy Gallegos, acting as medical physics researcher for Sukumar Dominguez MD, MD/DO. <Candy Gallegos - Last Filed: 10/10/17 16:22> - Discharge Dispostion Admit: No <Sukumar Dominguez - Last Filed: 10/10/17 17:21> Diagnosis at time of Disposition: Bronchitis - Prescriptions Prescriptions: Azithromycin 250 mg PO DAILY #4 tablet Azithromycin 500 mg PO DAILY #1 tablet - Referrals Referrals: Nilam Campos MD [Primary Care Provider] - - Patient Instructions Printed Discharge Instructions: Acute Bronchitis Additional Instructions: Azithromycin as prescribed. Follow-up with your primary care provider in 1-2 days. Tylenol as directed on package as needed for pain. Drink plenty fluids. Do not smoke. Return to the emergency department for any severe worsening symptoms or for any concerns. - Post Discharge Activity Forms/Work/School Notes: Back to Work
[2017-10-10 17:34] VITALS: BP 147/76; PULSE 83
== END 2017-10-10 17:34 | disposition home or self-care (01) ==
LOC: JER 13:50
PROC: 3E0F7GC Introduction of Other Therapeutic Substance into Respiratory Tract, Via Natural or Artificial Opening (ICD-10-PCS; principal; 2017-10-10)
PROC: 3E033NZ Introduction of Analgesics, Hypnotics, Sedatives into Peripheral Vein, Percutaneous Approach (ICD-10-PCS; 2017-10-10)
PROC: 3E033GC Introduction of Other Therapeutic Substance into Peripheral Vein, Percutaneous Approach (ICD-10-PCS; 2017-10-10)
DX: J20.9 Acute bronchitis, unspecified (principal)
CPT/HCPCS: 36415; 71046-TC-FY; 76705-TC; 80053; 85025; 85379; 99283-25; J0131; J7030; J7620

== ENCOUNTER 2017-12-15 15:34 | Emergency (ER) | payer BC, OTHER ==
--- NOTE | 2017-12-15 15:40 | PDOC ---
Rapid Medical Evaluation Time Seen by Provider: 12/15/17 15:36 Medical Evaluation: Allergies Allergy/AdvReac Type Severity Reaction Status Date / Time Penicillins Allergy Mild "hives-pimp Verified 11/17/17 11:56 les" I have performed a brief in-person evaluation of this patient. The patient presents with a chief complaint of: chest pain, dry cough, wheezing today. he went to [facility] because he believed he had bronchitis, which he's had before. Patient states [facility] did an EKG and immediately sent him here. Pertinent physical exam findings: RRR. CTAB. No cough in the ER. I have ordered the following: ekg, cxr, labs The patient will proceed to the ED for further evaluation. Discharge Disposition - Diagnosis Cough Chest pain Qualifiers: Chest pain type: unspecified Qualified Code(s): R07.9 - Chest pain, unspecified - Referrals - Patient Instructions - Post Discharge Activity
[2017-12-15 15:45] VITALS: BMI 53.7
[2017-12-15 16:17] LABS: BASO % 1.1 % (0-2.0); EOS % 2.7 % (0-4.5); HEMATOCRIT 38.3 % (35.4-49); HEMOGLOBIN 12.8 GM/dL (11.7-16.9); MCH 28.9 pg (25.7-33.7); MCHC 33.5 g/dl (32.0-35.9); MEAN CELL VOLUME 86.2 fl (80-96); MEAN PLT VOLUME 8.7 fl (7.5-11.1); MONO % 6.5 % (3.8-10.2); NEUT % 66.7 % (42.8-82.8); PLATELET COUNT 199 K/MM3 (134-434); RBC 4.44 M/mm3 (4.00-5.60); RDW 13.9 % (11.9-15.9); WHITE BLOOD COUNT 7.6 K/mm3 (4.0-10.0)
[2017-12-15 19:30] LABS: ALBUMIN 3.8 g/dl (3.4-5.0); ANION GAP 4 (8-16); BLOOD UREA NITROGEN 13 mg/dL (7-18); CALCIUM 8.5 mg/dL (8.5-10.1); CHLORIDE 103 mmol/L (98-107); CO2 32 mmol/L (21-32); CREATININE 0.8 mg/dL (0.7-1.3); GLUCOSE,RANDOM 90 mg/dL (74-106); POTASSIUM 4.1 mmol/L (3.5-5.1); SGOT/AST 13 U/L (15-37); SGPT/ALT 24 U/L (12-78); SODIUM 139 mmol/L (136-145)
[2017-12-15 19:45] LABS: ALK PHOS 90 U/L (45-117); BILIRUBIN,TOTAL 0.4 mg/dL (0.2-1.0); TOT PROT 7.8 g/dl (6.4-8.2)
--- NOTE | 2017-12-15 19:59 | PDOC ---
History of Present Illness <Catrina Peralta - Last Filed: 12/15/17 20:44> - General History Source: Patient Exam Limitations: No Limitations - History of Present Illness Initial Comments: 12/15/17 19:53 The patient is a 37M with a PMH of chronic bronchitis and morbid obesity who presents to the ER with complaints of chest tightness. The patient states that he has had a productive cough with white/yellow phlegm and states that this feels exactly like his previous bronchitis. He states that he normally gets a z- pack and feels better. He follows with Dr. Krishna for pulm and is not sure why he always gets bronchitis (3-4x/year). He also states that he has fevers yesterday but denies any CP or SOB, muscle aches, sore throat. <Chintan Byrd - Last Filed: 12/15/17 20:48> - General Chief Complaint: Chest Pain Stated Complaint: ABNORMAL EKG Time Seen by Provider: 12/15/17 15:36 Past History <Catrina Peralta - Last Filed: 12/15/17 20:44> - Past Medical History Anemia: No Asthma: No Cancer: No Cardiac Disorders: No CVA: No COPD: No CHF: No DVT: No Dementia: No Diabetes: No GI Disorders: Yes (OBESITY morbid) Disorders: No HTN: No Hypercholesterolemia: No Liver Disease: No Seizures: No Thyroid Disease: No - Surgical History Abdominal Surgery: No Appendectomy: No Cardiac Surgery: No Cholecystectomy: No Lung Surgery: No Neurologic Surgery: No Orthopedic Surgery: Yes (right knee sx) - Family Disease History Family Disease History: Heart Disease: Mother (CHF) - Immunization History Immunization Up to Date: Yes - Suicide/Smoking/Psychosocial Hx Smoking Status: Yes Smoking History: Former smoker Have you smoked in the past 12 months: Yes Number of Cigarettes Smoked Daily: 4 If you are a former smoker, when did you quit?: 2014 Information on smoking cessation initiated: No 'Breaking Loose' booklet given: 11/17/17 Hx Alcohol Use: No Drug/Substance Use Hx: No Substance Use Type: None Hx Substance Use Treatment: No <Chintan Byrd - Last Filed: 12/15/17 20:48> - Past Medical History Allergies/Adverse Reactions: Allergies Allergy/AdvReac Type Severity Reaction Status Date / Time Penicillins Allergy Mild "hives-pimp Verified 12/15/17 15:41 les" Home Medications: Ambulatory Orders Cyclobenzaprine HCl [Flexeril -] 10 mg PO TID 11/17/17 Methadone [Dolophine -] 5 mg PO DAILY 11/17/17 Oxycodone HCl/Acetaminophen [Percocet 5-325 mg Tablet] 1 - 2 tab PO Q6H #12 tab MDD 6 11/17/17 Review of Systems - Review of Systems Able to Perform ROS?: Yes Comments:: 12/15/17 19:59 GENERAL/CONSTITUTIONAL: No fever or chills. No weakness. HEAD, EYES, EARS, NOSE AND THROAT: No change in vision. No ear pain or discharge. No sore throat. CARDIOVASCULAR: No chest pain, palpitations, or lightheadedness. RESPIRATORY: Positive for chest tightness and cough. No wheezing, shortness of breath, or hemoptysis. GASTROINTESTINAL: No nausea, vomiting, diarrhea, constipation, or abdominal pain. GENITOURINARY: No dysuria, frequency, hematuria, or change in urination. MUSCULOSKELETAL: No joint or muscle swelling or pain. No neck or back pain. SKIN: No rash or lesions. NEUROLOGIC: No headache, numbness, tingling, weakness, loss of consciousness, or change in strength/sensation. ENDOCRINE: No increased thirst. No abnormal weight change. HEMATOLOGIC/LYMPHATIC: No anemia, easy bleeding, or history of blood clots. ALLERGIC/IMMUNOLOGIC: No hives or skin allergy. Is the patient limited [place] proficient: No <Chintan Byrd - Last Filed: 12/15/17 20:48> *Physical Exam - Vital Signs Last Vital Signs Temp Pulse Resp BP Pulse Ox 97.7 F 93 H 18 132/82 99 12/15/17 15:35 12/15/17 15:35 12/15/17 15:35 12/15/17 15:35 12/15/17 15:35 <Catrina Peralta - Last Filed: 12/15/17 20:44> - Vital Signs Last Vital Signs Temp Pulse Resp BP Pulse Ox 97.7 F 93 H 18 132/82 99 12/15/17 15:35 12/15/17 15:35 12/15/17 15:35 12/15/17 15:35 12/15/17 15:35 - Physical Exam Comments: 12/15/17 20:00 GENERAL: Well developed, well nourished. Awake and alert. No acute distress. HEENT: Normocephalic, atraumatic. Hearing grossly normal. Moist mucous membranes. PERRLA, EOMI. No conjunctival pallor. Sclera are non-icteric. Oropharynx is clear. NECK: Supple. Full ROM. CARDIOVASCULAR: Regular rate and rhythm. No murmurs, rubs, or gallops. PULMONARY: No evidence of respiratory distress. Lungs clear to auscultation bilaterally. No wheezing, rales or rhonchi. ABDOMINAL: Soft. Non-tender. Non-distended. No rebound or guarding. No organomegaly. Normoactive bowel sounds. GENITOURINARY: No CVA tenderness bilaterally. MUSCULOSKELETAL: Normal range of motion at all joints. No bony deformities or tenderness. EXTREMITIES: No cyanosis. No clubbing. No edema. No calf tenderness or swelling. SKIN: Warm and dry. Normal capillary refill. No rashes. No jaundice. NEUROLOGICAL: Alert, awake, appropriate. Cranial nerves 2-12 intact. Normal speech. Gait is normal without ataxia. PSYCHIATRIC: Cooperative. Good eye contact. Appropriate mood and affect. <Chintan Byrd - Last Filed: 12/15/17 20:48> Heart Score/ECG Review #1 ECG reviewed & interpreted by me at: 19:45 General ECG Interpretation: Sinus Rhythm, Normal Rate, Normal Intervals, No acute ischemic changes Compared to previous ECG there are: No significant change 12/15/17 20:03 NSR Vent rate 89 NJ 162 QT 368 QRS 104 T wave inversions possible in V2 and V3. Unchanged from previous. This is EKG done in . #2 ECG reviewed & interpreted by me at: 19:53 General ECG Interpretation: Sinus Rhythm, Normal Rate, Normal Intervals, No acute ischemic changes Compared to previous ECG there are: No significant change 12/15/17 20:04 NSR Vent rate 92 NJ 166 QRS 94 QTc 452 No GEE or STD No evidence of acute ischemic changes Unchanged from EKG in 08/05/2014. <Chintan Byrd - Last Filed: 12/15/17 20:48> ED Treatment Course - LABORATORY CBC & Chemistry Diagram: 12/15/17 16:11 12/15/17 19:00 - ADDITIONAL ORDERS Additional order review: Laboratory Results 12/15/17 12/15/17 19:00 16:11 Sodium 139 Cancelled Potassium 4.1 Cancelled Chloride 103 Cancelled Carbon Dioxide 32 Cancelled Anion Gap 4 L Cancelled BUN 13 D Cancelled Creatinine 0.8 D Cancelled Creat Clearance w eGFR > 60 Cancelled Random Glucose 90 Cancelled Calcium 8.5 Cancelled Total Bilirubin 0.4 D Cancelled AST 13 L Cancelled ALT 24 D Cancelled Alkaline Phosphatase 90 Cancelled Creatine Kinase 106 Cancelled Troponin I < 0.02 Cancelled Total Protein 7.8 Cancelled Albumin 3.8 D Cancelled 12/15/17 16:11 RBC 4.44 MCV 86.2 MCHC 33.5 RDW 13.9 MPV 8.7 Neutrophils % 66.7 Lymphocytes % 23.0 Monocytes % 6.5 Eosinophils % 2.7 Basophils % 1.1 - Medications Given in the ED: ED Medications Discontinued Medications Generic Name Dose Route Start Last Admin Trade Name Freq PRN Reason Stop Dose Admin Dexamethasone 10 mg 12/15/17 20:08 12/15/17 20:13 Decadron - PO 12/15/17 20:09 10 mg ONCE ONE Administration <Catrina Peralta - Last Filed: 12/15/17 20:44> - LABORATORY CBC & Chemistry Diagram: 12/15/17 16:11 12/15/17 19:00 - ADDITIONAL ORDERS Additional order review: Laboratory Results 12/15/17 16:11 Sodium Cancelled Potassium Cancelled Chloride Cancelled Carbon Dioxide Cancelled Anion Gap Cancelled BUN Cancelled Creatinine Cancelled Creat Clearance w eGFR Cancelled Random Glucose Cancelled Calcium Cancelled Total Bilirubin Cancelled AST Cancelled ALT Cancelled Alkaline Phosphatase Cancelled Creatine Kinase Cancelled Troponin I Cancelled Total Protein Cancelled Albumin Cancelled 12/15/17 16:11 RBC 4.44 MCV 86.2 MCHC 33.5 RDW 13.9 MPV 8.7 Neutrophils % 66.7 Lymphocytes % 23.0 Monocytes % 6.5 Eosinophils % 2.7 Basophils % 1.1 <Chintan Byrd - Last Filed: 12/15/17 20:48> Medical Decision Making - Medical Decision Making 12/15/17 20:04 The patient is a 37M with a PMH of morbid obesity and chronic bronchitis. CBC, CMP, trop, and EKG negative. I have explained to the patient that his bronchitis is likely viral in nature and I will not prescribe an antibiotic. Will give 10 of decadron for symptomatic relief. Pt agrees and will f/u with Dr. Krishna and his father's marketing regional consultant. <Chintan Byrd - Last Filed: 12/15/17 20:48> *DC/Admit/Observation/Transfer <Catrina Peralta - Last Filed: 12/15/17 20:44> - Discharge Dispostion Decision to Admit order: No <FelicitasavelinaChintan - Last Filed: 12/15/17 20:48> Diagnosis at time of Disposition: Cough Chest pain Qualifiers: Chest pain type: unspecified Qualified Code(s): R07.9 - Chest pain, unspecified - Discharge Dispostion Disposition: HOME Condition at time of disposition: Stable - Referrals Referrals: Levi Waters MD [Primary Care Provider] - - Patient Instructions Printed Discharge Instructions: DI for Chronic Bronchitis Additional Instructions: Please follow up with your primary care physician in 2-3 days. Please return to the ER if you have any signs or symptoms of chest pain, shortness of breath, uncontrollable fever, chills, nausea, vomiting, numbness, tingling, or weakness in any part of your body, changes in vision, or slurred speech. Please return to the ER if symptoms persist, worsen, or new symptoms arise. - Post Discharge Activity Forms/Work/School Notes: Back to Work
[2017-12-15] MEDS ORDERED: DEXAMETHASONE 4 MG TABLET (FP) PO ONE (20:08)
[2017-12-15] MEDS ORDERED: DEXAMETHASONE SOD PHOSPHATE 10 MG/1 ML VIAL ONE (20:15)
--- NOTE | 2017-12-15 20:44 | PDOC ---
Attending Attestation - Resident Resident Name: Chintan Byrd - ED Attending Attestation I have performed the following: I have examined & evaluated the patient, The case was reviewed & discussed with the resident, I agree w/resident's findings & plan - HPI HPI: 12/16/17 06:43 PT COMES WITH CHEST PAIN. HE IS MORBIDLY OBESE. 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 - Physicial Exam PE: 12/16/17 06:43 Agree with resident exam. - Medical Decision Making 12/16/17 06:43 Pt will be discharged home with diet and exercise plan. Pt promises to follow with PMD.
[2017-12-15 21:00] VITALS: BP 128/78; PULSE 82; TEMP 97.8
--- NOTE | 2017-12-19 00:42 | EKG ---
Test Reason : Blood Pressure : / mmHG Vent. Rate : 092 BPM Atrial Rate : 092 BPM P-R Int : 166 ms QRS Dur : 094 ms QT Int : 366 ms P-R-T Axes : 043 055 017 degrees QTc Int : 452 ms NORMAL SINUS RHYTHM INCOMPLETE RIGHT BUNDLE BRANCH BLOCK CANNOT RULE OUT ANTERIOR INFARCT , AGE UNDETERMINED ABNORMAL ECG WHEN COMPARED WITH ECG OF 05-AUG-2014 18:06, NO SIGNIFICANT CHANGE WAS FOUND Confirmed by KEVIN ROLDAN, HEIDE ([id number]) on 12/19/2017 12:42:01 AM Referred By: Confirmed By:HEIDE BROWN MD
== END 2017-12-15 21:07 | disposition home or self-care (01) ==
LOC: JER 15:34
DX: J40 Bronchitis, not specified as acute or chronic (principal); B97.89 Other viral agents as the cause of diseases classified elsewhere; E66.01 Morbid (severe) obesity due to excess calories; Z68.43 Body mass index [BMI] 50.0-59.9, adult
CPT/HCPCS: 36415; 71046-TC-FY; 80053; 82550; 84484; 85025; 93005; 93010; 99283-25

== ENCOUNTER 2018-07-20 20:20 | Emergency (ER) | payer BC, OTHER ==
[2018-07-20 20:34] VITALS: BP 145/85; PULSE 99; TEMP 97.8; BMI 55.2
--- NOTE | 2018-07-20 21:55 | PDOC ---
History of Present Illness - General Chief Complaint: Cold Symptoms Stated Complaint: BACK PAIN/CONGESTION Time Seen by Provider: 07/20/18 21:32 History Source: Patient Exam Limitations: No Limitations Past History - Past Medical History Allergies/Adverse Reactions: Allergies Allergy/AdvReac Type Severity Reaction Status Date / Time Penicillins Allergy Mild "hives-pimp Verified 12/15/17 15:41 les" Home Medications: Ambulatory Orders NK [No Known Home Medication] 07/20/18 Anemia: No Asthma: No Cancer: No Cardiac Disorders: No CVA: No COPD: No CHF: No DVT: No Dementia: No Diabetes: No GI Disorders: Yes (OBESITY morbid) Disorders: No HTN: No Hypercholesterolemia: No Liver Disease: No Seizures: No Thyroid Disease: No - Surgical History Abdominal Surgery: No Appendectomy: No Cardiac Surgery: No Cholecystectomy: No Lung Surgery: No Neurologic Surgery: No Orthopedic Surgery: Yes (right knee sx) - Family Disease History Family Disease History: Heart Disease: Mother (CHF) - Immunization History Immunization Up to Date: Yes - Suicide/Smoking/Psychosocial Hx Smoking Status: Yes Smoking History: Never smoked Have you smoked in the past 12 months: No Number of Cigarettes Smoked Daily: 4 If you are a former smoker, when did you quit?: 2014 Information on smoking cessation initiated: No 'Breaking Loose' booklet given: 11/17/17 Hx Alcohol Use: No Drug/Substance Use Hx: No Substance Use Type: None Hx Substance Use Treatment: No *Physical Exam - Vital Signs Last Vital Signs Temp Pulse Resp BP Pulse Ox 97.8 F 99 H 18 145/85 100 07/20/18 20:31 07/20/18 20:31 07/20/18 20:31 07/20/18 20:31 07/20/18 20:31 - Physical Exam General Appearance: No: Apparent Distress HEENT: positive: NILES, Normal ENT Inspection, Normal Voice Neck: positive: Supple Respiratory/Chest: positive: Lungs Clear, Normal Breath Sounds. negative: Respiratory Distress Cardiovascular: positive: Regular Rhythm, Regular Rate, S1, S2. negative: Murmur Neurologic: positive: Fully Oriented, Alert, Normal Mood/Affect Moderate Sedation - Procedure Monitoring Vital Signs: Procedure Monitoring Vital Signs Temperature 97.8 F 07/20/18 20:31 Pulse Rate 99 H 07/20/18 20:31 Respiratory Rate 18 07/20/18 20:31 Blood Pressure 145/85 07/20/18 20:31 O2 Sat by Pulse Oximetry (%) 100 07/20/18 20:31 Medical Decision Making - Medical Decision Making 38 y/o M hx of obesity, chronic bronchitis presents with URI sxs x 1 week along with chest tightness and SOB that he states feels like his usual bronchitis. Mentions that only Azithromycin helps with his sxs. Patient has been seen in the past with similar complaints. Denies smoking or drug use. Denies FH of CAD or PR. Denies abd pain, n/v/d, dizziness, palpitations Patient appears well, is afebrile and lungs clear Advised supportive care and stated he does not need antibiotics at this time Not suspicious for ACS; only risk factor for patient is obesity (score of 1) Advised follow-up with his PCP Stable for d/c 07/20/18 21:51 *DC/Admit/Observation/Transfer Diagnosis at time of Disposition: Viral syndrome - Discharge Dispostion Disposition: HOME Condition at time of disposition: Good Decision to Admit order: No - Referrals Referrals: Levi Waters MD [Primary Care Provider] - 3 days - Patient Instructions Printed Discharge Instructions: DI for Viral Upper Respiratory Infection -- Adult, DI for Chest Pain Additional Instructions: Thank you for choosing [facility]. It was a pleasure taking care of you. You do not need currently need antibiotics Follow-up with your primary care doctor in 2-3 days. Drink plenty of fluid to stay hydrated Return to the Emergency Department if your symptoms worsen or persist, you have fever, shortness of breath, chest pain, severe abdominal pain, vomiting, dizziness or other concerning symptoms. - Post Discharge Activity
== END 2018-07-20 21:58 | disposition home or self-care (01) ==
LOC: JERFT 20:20
DX: J06.9 Acute upper respiratory infection, unspecified (principal); B97.89 Other viral agents as the cause of diseases classified elsewhere; E66.9 Obesity, unspecified; Z68.43 Body mass index [BMI] 50.0-59.9, adult
CPT/HCPCS: 99281-25

== ENCOUNTER 2018-11-03 14:31 | Emergency (ER) | payer OTHER ==
--- NOTE | 2018-11-03 14:43 | PDOC ---
History of Present Illness - General Chief Complaint: Pain, Acute Stated Complaint: LT KNEE PAIN Time Seen by Provider: 11/03/18 14:41 Past History - Travel Traveled outside of the country in the last 30 days: No Close contact w/someone who was outside of country & ill: No - Past Medical History Allergies/Adverse Reactions: Allergies Allergy/AdvReac Type Severity Reaction Status Date / Time Penicillins Allergy Mild "hives-pimp Verified 11/03/18 14:37 les" Home Medications: Ambulatory Orders Meloxicam 15 mg PO TID #21 tablet 11/03/18 Anemia: No Asthma: No Cancer: No Cardiac Disorders: No CVA: No COPD: No CHF: No DVT: No Dementia: No Diabetes: No GI Disorders: Yes (OBESITY morbid) Disorders: No HTN: No Hypercholesterolemia: No Liver Disease: No Seizures: No Thyroid Disease: No - Surgical History Abdominal Surgery: No Appendectomy: No Cardiac Surgery: No Cholecystectomy: No Lung Surgery: No Neurologic Surgery: No Orthopedic Surgery: Yes (right knee sx) - Family Disease History Family Disease History: Heart Disease: Mother (CHF) - Immunization History Immunization Up to Date: Yes - Suicide/Smoking/Psychosocial Hx Smoking Status: Yes Smoking History: Never smoked Have you smoked in the past 12 months: No Number of Cigarettes Smoked Daily: 4 If you are a former smoker, when did you quit?: 2014 'Breaking Loose' booklet given: 11/17/17 Hx Alcohol Use: No Drug/Substance Use Hx: No Substance Use Type: None Hx Substance Use Treatment: No Review of Systems - Review of Systems Able to Perform ROS?: Yes Comments:: 11/03/18 14:43 CONSTITUTIONAL: Absent: fever, chills, diaphoresis, generalized weakness, malaise, loss of appetite HEENT: Absent: rhinorrhea, nasal congestion, throat pain, throat swelling, difficulty swallowing, mouth swelling, ear pain, eye pain, visual Changes CARDIOVASCULAR: Absent: chest pain, loss of consciousness, palpitations, irregular heart rate, peripheral edema RESPIRATORY: Absent: cough, shortness of breath, dyspnea with exertion, orthopnea, wheezing, stridor, hemoptysis GASTROINTESTINAL: Absent: abdominal pain, abdominal distension, nausea, vomiting, diarrhea, constipation, melena, hematochezia GENITOURINARY: Absent: dysuria, frequency, urgency, hesitancy, hematuria, flank pain, genital pain MUSCULOSKELETAL: Present: L knee pain Absent: joint swelling SKIN: Absent: rash, itching, pallor HEMATOLOGIC/IMMUNOLOGIC: Absent: easy bleeding, easy bruising, lymphadenopathy, frequent infections ENDOCRINE: Absent: unexplained weight gain, unexplained weight loss, heat intolerance, cold intolerance NEUROLOGIC: Absent: headache, focal weakness or paresthesias, dizziness, unsteady gait, seizure, mental status changes, bladder or bowel incontinence PSYCHIATRIC: Absent: anxiety, depression, suicidal or homicidal ideation, hallucinations. Is the patient limited Chinese proficient: No *Physical Exam - Vital Signs Last Vital Signs Temp Pulse Resp BP Pulse Ox 98.6 F 88 16 142/97 98 11/03/18 14:38 11/03/18 14:38 11/03/18 14:38 11/03/18 14:38 11/03/18 14:38 - Physical Exam Comments: 11/03/18 14:43 GENERAL: Well developed, well nourished. Awake and alert. No acute distress. HEENT: Normocephalic, atraumatic. PERRLA, EOMI. No conjunctival pallor. Sclera are non- icteric. Moist mucous membranes. Oropharynx is clear. NECK: Supple. Full ROM. No JVD. Carotid pulses 2+ and symmetric, without bruits. No thyromegaly. No lymphadenopathy. CARDIOVASCULAR: Regular rate and rhythm. No murmurs, rubs, or gallops. Distal pulses are 2+ and symmetric. PULMONARY: No evidence of respiratory distress. Lungs clear to auscultation bilaterally. No wheezing, rales or rhonchi. ABDOMINAL: Soft. Non-tender. Non-distended. No rebound or guarding. No organomegaly. Normoactive bowel sounds. MUSCULOSKELETAL Normal range of motion at all joints. No bony deformities or tenderness. No CVA tenderness. EXTREMITIES: No cyanosis. No clubbing. No edema. No calf tenderness. SKIN: Warm and dry. Normal capillary refill. No rashes. No jaundice. NEUROLOGICAL: Alert, awake, appropriate. Cranial nerves 2-12 intact. No deficits to light touch and temperature in face, upper extremities and lower extremities. No motor deficits in the in face, upper extremities and lower extremities. Normoreflexic in the upper and lower extremities. Normal speech. Toes are down- going bilaterally. Gait is normal without ataxia. PSYCHIATRIC: Cooperative. Good eye contact. Appropriate mood and affect. *DC/Admit/Observation/Transfer Diagnosis at time of Disposition: Left knee pain Qualifiers: Chronicity: acute Qualified Code(s): M25.562 - Pain in left knee - Discharge Dispostion Disposition: HOME Condition at time of disposition: Stable Decision to Admit order: No - Referrals Referrals: Levi Waters MD [Primary Care Provider] - Koko Carlson MD [Staff Physician] - - Patient Instructions Printed Discharge Instructions: DI for Knee Pain Additional Instructions: You were evaluated for your knee pain Keep the knee elevated at rest Take the meloxicam as directed with food Follow up with orthopedics. A referral has been provided to you Return to the ED for any new or worsening symptoms - Post Discharge Activity Forms/Work/School Notes: Back to Work
[2018-11-03 14:46] VITALS: BP 142/97; PULSE 88; TEMP 98.6; BMI 57.1
[2018-11-03] MEDS ORDERED: KETOROLAC TROMETHAMINE 60 MG/2 ML VIAL IM ONE (15:15)
[2018-11-03] MEDS ORDERED: KETOROLAC TROMETHAMINE 60 MG/2 ML VIAL ONE (15:19)
== END 2018-11-03 15:41 | disposition home or self-care (01) ==
LOC: JER 14:31 → JERFT 14:31
PROC: 3E0233Z Introduction of Anti-inflammatory into Muscle, Percutaneous Approach (ICD-10-PCS; principal; 2018-11-03)
DX: M25.562 Pain in left knee (principal); E66.01 Morbid (severe) obesity due to excess calories; Z68.43 Body mass index [BMI] 50.0-59.9, adult
CPT/HCPCS: 99281-25

== ENCOUNTER 2019-02-12 09:45 | Emergency (ER) | payer BC ==
[2019-02-12 09:57] VITALS: BP 161/83; PULSE 89; TEMP 98.2; BMI 59.1
--- NOTE | 2019-02-12 10:38 | PDOC ---
History of Present Illness - General Chief Complaint: Edema Stated Complaint: RASH Time Seen by Provider: 02/12/19 10:34 - History of Present Illness Initial Comments: 02/12/19 12:15 The patient is a 38 year old male with a history of morbid obesity who presents for evaluation of redness to the right lower extremity. The patient reports a 3 day history of worsening redness and pain to the calf of his right lower extremity prompting his presentation to the ED for further evaluation. He notes that he has a family history of DVT and had a recent US in December that was negative for DVT. He otherwise denies fevers, chills, SOB, chest pain, nausea, vomiting, abdominal pain, numbness, tingling, weakness or changes with urination or bowel movements. Past History - Past Medical History Allergies/Adverse Reactions: Allergies Allergy/AdvReac Type Severity Reaction Status Date / Time Penicillins Allergy Intermediate "hives-pimp Verified 02/12/19 09:54 les" Home Medications: Ambulatory Orders Doxycycline Hyclate [Vibramycin -] 100 mg PO BID #14 cap 02/12/19 Anemia: No Asthma: No Cancer: No Cardiac Disorders: No CVA: No COPD: No CHF: No DVT: No Dementia: No Diabetes: No GI Disorders: Yes (OBESITY morbid) Disorders: No HTN: No Hypercholesterolemia: No Liver Disease: No Seizures: No Thyroid Disease: No - Surgical History Abdominal Surgery: No Appendectomy: No Cardiac Surgery: No Cholecystectomy: No Lung Surgery: No Neurologic Surgery: No Orthopedic Surgery: Yes (right knee sx, LEFT KNEE SX) - Family Disease History Family Disease History: Heart Disease: Mother (CHF) - Immunization History Immunization Up to Date: Yes - Suicide/Smoking/Psychosocial Hx Smoking Status: Yes Smoking History: Never smoked Have you smoked in the past 12 months: No Number of Cigarettes Smoked Daily: 4 If you are a former smoker, when did you quit?: 2014 Information on smoking cessation initiated: No 'Breaking Loose' booklet given: 11/17/17 Hx Alcohol Use: No Drug/Substance Use Hx: Yes (MARIJUANA) Substance Use Type: None, Marijuana Hx Substance Use Treatment: No (MARIJUANA, MEDICINAL) Review of Systems - Review of Systems Comments:: 02/12/19 12:18 Constitutional: No fevers, chills, fatigue, malaise HEENT: No Rhinorrhea, nasal congestion, visual changes Cardiovascular: No chest pain, syncope, palpitations, lightheadedness Respiratory: No Cough, SOB, Hemoptysis, Gastrointestinal: No Abdominal pain, Nausea, Vomiting, Constipation, Diarrhea, Melena Genitourinary: No Dysuria, Frequency, Urgency, Hesitancy, Hematuria, Flank pain Musculoskeletal: Right lower extremity pain. No Myalgia, arthralgia Skin: Right lower extremity redness No itching, bruising, pallor Neurologic: No Headache, Dizziness, Numbness, Weakness, or Tingling Psychiatric: No Hallucinations. No SI or HI *Physical Exam - Vital Signs Last Vital Signs Temp Pulse Resp BP Pulse Ox 98.2 F 89 16 161/83 95 02/12/19 09:55 02/12/19 09:55 02/12/19 09:55 02/12/19 09:55 02/12/19 09:55 - Physical Exam Comments: 02/12/19 12:18 General Appearance: Nourished. Morbidly obese. No Apparent Distress HEENT: No Pharyngeal Erythema, Tonsillar Exudate, Tonsillar Erythema Neck: No Cervical Lymphadenopathy Respiratory/Chest: Lungs Clear, Normal Breath Sounds. No Crackles, Rales, Rhonchi, Wheezing Cardiovascular: Regular Rhythm, Regular Rate. No Murmur, Gallops, Rubs Gastrointestinal/Abdominal: Normal Bowel Sounds, Soft. No Guarding, Rebound, Tenderness Musculoskeletal: No CVA Tenderness Extremity: 2+ pitting edema bilaterally. 5cm x5cm area of erythema and warmth to the posterior aspect of the right calf. Normal Capillary Refill Integumentary: Normal Color, Dry, Warm Neurologic: Fully Oriented, Alert, Normal Mood/Affect, Normal Response, ED Treatment Course - LABORATORY CBC & Chemistry Diagram: 02/12/19 11:00 02/12/19 11:00 Medical Decision Making - Medical Decision Making 02/12/19 12:20 The patient is a 38 year old male with a history of morbid obesity who presents for evaluation of redness to the right lower extremity. Differential includes but is not limited to: Cellulitis, DVT, Infectious, Metabolic Derangement. Given the patient's history and physical exam, we will obtain a cbc, cmp, DVT US to evaluate further. We will continue to monitor and reassess while here in the ED. 02/12/19 13:43 CBC, cmp, are unremarkable. DVT US is negative for DVT as read by our radiologist. We are comfortable discharging the patient home in stable condition on doxycycline. Patient made aware of impression and plan, return precautions discussed including but not limited to worsening pain or symptoms, fevers, or signs of infection, chest pain, respiratory distress, inability to tolerate oral intake, dehydration, syncope, or neurologic changes. The patient is to follow up with PMD as recommended within 1 week, follow up information provided and the patient will call for an appointment. The patient is to take medications as instructed for duration of time and continue with supportive care , avoid triggers and precipitants. Patient is safe for outpatient follow-up. *DC/Admit/Observation/Transfer Diagnosis at time of Disposition: Cellulitis Qualifiers: Site of cellulitis: unspecified site Qualified Code(s): L03.90 - Cellulitis, unspecified - Discharge Dispostion Disposition: HOME Condition at time of disposition: Stable Decision to Admit order: No - Prescriptions Prescriptions: Doxycycline Hyclate [Vibramycin -] 100 mg PO BID #14 cap - Referrals Referrals: Ana Laura Bonilla MD [Primary Care Provider] - - Patient Instructions Printed Discharge Instructions: DI for Cellulitis -- Adult Additional Instructions: 1) Please follow-up with your primary care doctor in the next 2-3 days. Please call tomorrow to schedule a follow up appointment. If you cannot follow up with your doctor within 1 week please return to the Emergency Department for any urgent issues. 2) Your laboratory / imaging results were normal here in the ER. 3) If you have any worsening of symptoms or any other concerns please return to the ER immediately. Return if worsening symptoms including fevers, headache, vomiting, visual or hearing disturbances, abdominal pain, chest pain, shortness of breath, syncope, dehydration, inability to take things by mouth/vomiting, altered mental status, or worsening concerning symptoms. 4) Please continue taking your home medications as directed. Your medications on discharge include Doxycycline. Side effects may include upset stomach, abdominal pain, vomiting, or diarrhea. Do not drink alcohol with your medications. - Post Discharge Activity
[2019-02-12] MEDS ORDERED: ACETAMINOPHEN 1000 MG/100 ML VIAL (NON FORMULARY) IVPB ONE (10:52)
[2019-02-12 11:14] LABS: BASO % 0.5 % (0-2.0); EOS % 1.2 % (0-4.5); HEMATOCRIT 36.2 % (35.4-49); HEMOGLOBIN 11.9 GM/dL (11.7-16.9); LYMPH % 18.9 % (8-40); MCH 28.3 pg (25.7-33.7); MCHC 32.8 g/dl (32.0-35.9); MEAN CELL VOLUME 86.3 fl (80-96); MONO % 5.6 % (3.8-10.2); NEUT % 73.8 % (42.8-82.8); PLATELET COUNT 231 K/MM3 (134-434); RBC 4.19 M/mm3 (4.00-5.60); RDW 14.8 % (11.9-15.9)
[2019-02-12 11:39] LABS: ALBUMIN 3.2 g/dl (3.4-5.0); BILIRUBIN,TOTAL 0.2 mg/dL (0.2-1); BLOOD UREA NITROGEN 17.1 mg/dL (7-18); CALCIUM 8.7 mg/dL (8.5-10.1); CREATININE 0.8 mg/dL (0.55-1.3); POTASSIUM 4.2 mmol/L (3.5-5.1); TOT PROT 6.9 g/dl (6.4-8.2)
[2019-02-12] MEDS ORDERED: ACETAMINOPHEN INJECTION 100 ML IVPB ONE (12:01)
--- NOTE | 2019-02-12 12:33 | PDOC ---
Documentation entered by Ernesto Gómez SCRIBE, acting as scribe for Kasandra Zamora MD. Kasandra Zamora MD: This documentation has been prepared by the Rico hoffman Elijah, SCRIBE, under my direction and personally reviewed by me in its entirety. I confirm that the documentation accurately reflects all work, treatment, procedures, and medical decision making performed by me. Attending Attestation - Resident Resident Name: Jersey Stroud - ED Attending Attestation I have performed the following: I have examined & evaluated the patient, The case was reviewed & discussed with the resident, I agree w/resident's findings & plan, Exceptions are as noted - HPI HPI: 02/12/19 12:31 Patient is a 38 year old male with a significant past medical history of obesity who presents to the ED with redness in the right lower extremity lasting for x3 days. Patient associates some pain and also notes that he always has some swelling in both legs. Patient had a DVT US on 01/26/19 which was negative. Denies Fever, Chills, Nausea, Vomiting, drainage, SOB and recent illness Allergies: Penicillins Social History: 4 Cigarettes Daily; Marijuana Use Family History: Maternal Heart Disease (CHF) PCP: Dr. Bonilla - Physicial Exam PE: GENERAL: Awake, alert, and fully oriented, in no acute distress. Morbidly obese HEAD: No signs of trauma EYES: PERRLA, EOMI, sclera anicteric, conjunctiva clear EXTREMITIES: Normal range of motion, no edema. No clubbing or cyanosis. No cords, erythema, or tenderness NEUROLOGICAL: Cranial nerves II through XII grossly intact. Normal speech, normal gait. Motor and sensation intact SKIN: Warm, dry, normal turgor. +Petechial rash to the R lower leg, no warmth, no erythema. - Medical Decision Making Rash is not consistent with cellulitis. DVT study negative, labs wnl, platelet count normal.
== END 2019-02-12 13:49 | disposition home or self-care (01) ==
LOC: JER 09:45
PROC: 3E033NZ Introduction of Analgesics, Hypnotics, Sedatives into Peripheral Vein, Percutaneous Approach (ICD-10-PCS; principal; 2019-02-12)
DX: L03.115 Cellulitis of right lower limb (principal)
CPT/HCPCS: 36415; 80053; 85025; 86618; 93970-TC; 99282-25; J0131

== ENCOUNTER 2019-02-28 13:37 | Emergency (ER) | payer BC ==
[2019-02-28 13:50] VITALS: TEMP 98.5; BMI 55.6
--- NOTE | 2019-02-28 13:50 | PDOC ---
Rapid Medical Evaluation Chief Complaint: Pain Time Seen by Provider: 02/28/19 13:46 Medical Evaluation: Allergies Allergy/AdvReac Type Severity Reaction Status Date / Time Penicillins Allergy Intermediate "hives-pimp Verified 02/12/19 09:54 les" 02/28/19 13:47 I have performed a brief in-person evaluation of this patient. The patient presents with a chief complaint of: 2 days of 9/10 mid-epigastric abdominal pain with multiple episodes of bilious non bloody vomiting. No diarrhea. No fever/chills, no known sick contacts, no recent travel. No urinary complaints. Pt says that he went to [facility], was told her had blood in his urine, a high WBC of 17, he had a negative RUQ sono. Pertinent physical exam findings: Pt looks in no apparent distress I have ordered the following: CBC, CMP, UA, Ucx, Type and screen, PT. The patient will proceed to the ED for further evaluation. 02/28/19 13:50 Discharge Disposition - Diagnosis Abdominal pain Qualifiers: Abdominal location: unspecified location Qualified Code(s): R10.9 - Unspecified abdominal pain - Referrals - Patient Instructions - Post Discharge Activity
[2019-02-28] MEDS ORDERED: FAMOTIDINE 20 MG/50 ML IVPB 20 MG/50 ML MG IVPB ONE ×2 (14:33→14:55)
[2019-02-28] MEDS ORDERED: ACETAMINOPHEN 1000 MG/100 ML VIAL (NON FORMULARY) IVPB ONE (14:33)
[2019-02-28] MEDS ORDERED: SODIUM CHLORIDE 0.9% 1000 ML INFUS.BAG IV ONE ×2 (14:33→17:48)
[2019-02-28] MEDS ORDERED: ONDANSETRON 4 MG/2 ML VIAL IVPUSH ONE ×2 (14:33→20:03)
[2019-02-28] MEDS ORDERED: ACETAMINOPHEN INJECTION 100 ML IVPB ONE (14:54)
[2019-02-28] MEDS ORDERED: ONDANSETRON 4 MG/2 ML VIAL ONE (14:54)
--- NOTE | 2019-02-28 15:23 | PDOC ---
Documentation entered by Ernesto Gómez SCRIBE, acting as scribe for Sukumar Dominguez MD. Sukumar Dominguez MD: This documentation has been prepared by the Rico hoffman Elijah, SCRIBE, under my direction and personally reviewed by me in its entirety. I confirm that the documentation accurately reflects all work, treatment, procedures, and medical decision making performed by me. History of Present Illness - General Chief Complaint: Pain Stated Complaint: ABD. PAIN Time Seen by Provider: 02/28/19 13:46 History Source: Patient Exam Limitations: No Limitations - History of Present Illness Initial Comments: 02/28/19 14:59 Patient is a 38 year old male with a significant past medical history of obesity who presents to the ED with Abdominal Pain and Vomiting lasting for two days. Patient reports his abdominal pain as being Epigastric and intermittent and the vomiting as being bilious but non-bloody. Patient was seen at [facility] earlier today where had a negative RUQ sonogram. Denies Diarrhea Allergies: Penicillins Social History: 4 Cigarettes Daily; Marijuana Use Family History: Maternal Heart Disease (CHF) PCP: Dr. Bonilla Past History - Past Medical History Allergies/Adverse Reactions: Allergies Allergy/AdvReac Type Severity Reaction Status Date / Time Penicillins Allergy Intermediate "hives-pimp Verified 02/12/19 09:54 les" Home Medications: Ambulatory Orders Doxycycline Hyclate [Vibramycin -] 100 mg PO BID #14 cap 02/12/19 Famotidine [Pepcid -] 20 mg PO DAILY #7 tablet 02/28/19 Ondansetron [Zofran *Odt*] 8 mg SL TID PRN #10 od.tablet 02/28/19 Anemia: No Asthma: No Cancer: No Cardiac Disorders: No CVA: No COPD: No CHF: No DVT: No Dementia: No Diabetes: No GI Disorders: Yes (OBESITY morbid) Disorders: No HTN: No Hypercholesterolemia: No Liver Disease: No Seizures: No Thyroid Disease: No - Surgical History Abdominal Surgery: No Appendectomy: No Cardiac Surgery: No Cholecystectomy: No Lung Surgery: No Neurologic Surgery: No Orthopedic Surgery: Yes (right knee sx, LEFT KNEE SX) - Family Disease History Family Disease History: Heart Disease: Mother (CHF) - Immunization History Immunization Up to Date: Yes - Suicide/Smoking/Psychosocial Hx Smoking Status: Yes Smoking History: Never smoked Have you smoked in the past 12 months: No Number of Cigarettes Smoked Daily: 4 If you are a former smoker, when did you quit?: 2014 Information on smoking cessation initiated: No 'Breaking Loose' booklet given: 11/17/17 Hx Alcohol Use: No Drug/Substance Use Hx: Yes Substance Use Type: None, Marijuana Hx Substance Use Treatment: No (MARIJUANA, MEDICINAL) Review of Systems - Review of Systems Comments:: 02/28/19 15:00 A complete review of 10 out of 10 review of systems is taken and is negative apart from what is previously mentioned below and in the HPI. *Physical Exam - Vital Signs Last Vital Signs Temp Pulse Resp BP Pulse Ox 98.5 F 106 H 18 137/104 H 100 02/28/19 13:48 02/28/19 13:48 02/28/19 13:48 02/28/19 13:48 02/28/19 13:48 - Physical Exam Comments: 02/28/19 15:00 Vitals: Triage Vital signs reviewed General Appearance: no acute distress, well nourished well developed, Neck: Supple;No Nuchal rigidity Chest Wall: Nontender Cardiac: Regular rate and rhythm, no murmurs, no rubs, no gallops, Lungs: Clear to auscultation bilateral, good air movement bilaterally, Abdomen: +RUQ Tenderness to Palpation. Soft, nondistended, normal bowel sounds, Rectal: Exam deferred Extremities: Full range of motion to all extremities, no cyanosis, clubbing, or edema Skin: Warm and dry, no rashes or lesions, no petechiae Psych: normal mood, normal affect ED Treatment Course - LABORATORY CBC & Chemistry Diagram: 02/28/19 19:27 02/28/19 15:32 Medical Decision Making - Medical Decision Making 02/28/19 20:47 38 y/o with N/V/D sent from . Had elevated WBC at . In ED mild upper abdominal pain, US from was nl Will check labs hydrate GI cocktail and reasses. Dr. Ozuna to reasses and dispo *DC/Admit/Observation/Transfer Diagnosis at time of Disposition: Nausea and vomiting Abdominal pain Qualifiers: Abdominal location: unspecified location Qualified Code(s): R10.9 - Unspecified abdominal pain - Discharge Dispostion Disposition: HOME Condition at time of disposition: Stable - Prescriptions Prescriptions: Famotidine [Pepcid -] 20 mg PO DAILY #7 tablet Ondansetron [Zofran *Odt*] 8 mg SL TID PRN #10 od.tablet PRN Reason: Nausea - Referrals Referrals: Luis Miguel Bob MD [Staff Physician] - Antonio Ramirez MD [Staff Physician] - - Patient Instructions Printed Discharge Instructions: DI for Nausea -- Adult, DI for Epigastric Pain Additional Instructions: Please take all medications as prescribed. Please drink plenty of clear liquids. Please follow up with your PMD. Please return to the ED with any further concerns or complaints. - Post Discharge Activity Forms/Work/School Notes: Back to Work
[2019-02-28 15:28] LABS: EPI CELLS 1.5 /HPF (0-5/HPF); HYALINE CASTS 9 /lpf (0-8); URINE APPEARANCE TURBID; URINE BACTERIA 3.2 /hpf (NEGATIVE); URINE BILIRUBIN NEGATIVE (NEGATIVE); URINE COLOR ORANGE; URINE GLUCOSE (UA) NEGATIVE (NEGATIVE); URINE KETONE TRACE (NEGATIVE); URINE LEUK ESTERASE NEGATIVE (NEGATIVE); URINE NITRITE NEGATIVE (NEGATIVE); URINE PROTEIN TRACE (NEGATIVE); URINE RBC 4 /hpf (0-4); URINE UROBILINOGEN 0.2 mg/dL (0.2-1.0); URINE WBC 1 /hpf (0-5)
[2019-02-28 16:34] LABS: BASO % 0.3 % (0-2.0); EOS % 0.2 % (0-4.5); HEMATOCRIT 40.4 % (35.4-49); LYMPH % 8.9 % (8-40); MCH 27.5 pg (25.7-33.7); MCHC 32.3 g/dl (32.0-35.9); MEAN CELL VOLUME 85.3 fl (80-96); MEAN PLT VOLUME 9.5 fl (7.5-11.1); MONO % 6.2 % (3.8-10.2); NEUT % 84.4 % (42.8-82.8); PLATELET COUNT 257 K/MM3 (134-434); RBC 4.73 M/mm3 (4.00-5.60); RDW 14.5 % (11.9-15.9); WHITE BLOOD COUNT 15.6 K/mm3 (4.0-10.0)
[2019-02-28 16:35] LABS: INR 1.23 (0.83-1.09); PROTHROMBIN TIME (PATIENT) 14.5 SEC (9.7-13.0)
[2019-02-28 16:45] LABS: ALBUMIN 3.4 g/dl (3.4-5.0); BILIRUBIN,TOTAL 0.7 mg/dL (0.2-1); BLOOD UREA NITROGEN 17.7 mg/dL (7-18); CALCIUM 9.4 mg/dL (8.5-10.1); CREATININE 0.8 mg/dL (0.55-1.3); POTASSIUM 3.6 mmol/L (3.5-5.1); TOT PROT 7.8 g/dl (6.4-8.2)
--- NOTE | 2019-02-28 17:03 | PDOC ---
*Physical Exam - Vital Signs Last Vital Signs Temp Pulse Resp BP Pulse Ox 98.5 F 106 H 18 137/104 H 100 02/28/19 13:48 02/28/19 13:48 02/28/19 13:48 02/28/19 13:48 02/28/19 13:48 - Physical Exam Comments: 02/28/19 18:13 Gen: aaox3, nad abd: soft, obese, mild epigastric and LUQ ttp, minimal RUQ ttp, no rebound or guarding, no cva ttp ED Treatment Course - LABORATORY CBC & Chemistry Diagram: 02/28/19 19:27 02/28/19 15:32 - ADDITIONAL ORDERS Additional order review: Laboratory Results 02/28/19 02/28/19 02/28/19 15:32 15:32 15:32 PT with INR 14.50 H INR 1.23 H Sodium 139 Potassium 3.6 Chloride 98 Carbon Dioxide 31 Anion Gap 10 BUN 17.7 Creatinine 0.8 Est GFR (CKD-EPI)AfAm 132.27 Est GFR (CKD-EPI)NonAf 114.12 Random Glucose 102 Calcium 9.4 Total Bilirubin 0.7 AST 8 L ALT 19 Alkaline Phosphatase 82 Creatine Kinase 38 Troponin I < 0.02 Total Protein 7.8 Albumin 3.4 Urine Color Urine Appearance Urine pH Ur Specific [place] Urine Protein Urine Glucose (UA) Urine Ketones Urine Blood Urine Nitrite Urine Bilirubin Urine Urobilinogen Ur Leukocyte Esterase Urine WBC (Auto) Urine RBC (Auto) Urine Casts (Auto) U Epithel Cells (Auto) Urine Bacteria (Auto) 02/28/19 15:15 PT with INR INR Sodium Potassium Chloride Carbon Dioxide Anion Gap BUN Creatinine Est GFR (CKD-EPI)AfAm Est GFR (CKD-EPI)NonAf Random Glucose Calcium Total Bilirubin AST ALT Alkaline Phosphatase Creatine Kinase Troponin I Total Protein Albumin Urine Color [place] Urine Appearance Turbid Urine pH 5.0 Ur Specific [place] 1.029 Urine Protein Trace Urine Glucose (UA) Negative Urine Ketones Trace H Urine Blood 2+ H Urine Nitrite Negative Urine Bilirubin Negative Urine Urobilinogen 0.2 Ur Leukocyte Esterase Negative Urine WBC (Auto) 1 Urine RBC (Auto) 4 Urine Casts (Auto) 9 U Epithel Cells (Auto) 1.5 Urine Bacteria (Auto) 3.2 02/28/19 15:32 RBC 4.73 MCV 85.3 MCHC 32.3 RDW 14.5 MPV 9.5 Neutrophils % 84.4 H Lymphocytes % 8.9 D Monocytes % 6.2 Eosinophils % 0.2 D Basophils % 0.3 - Medications Given in the ED: ED Medications Discontinued Medications Generic Name Dose Route Start Last Admin Trade Name Latosha PRN Reason Stop Dose Admin Acetaminophen 1,000 mg 02/28/19 14:33 02/28/19 15:43 Ofirmev Injection - IVPB 02/28/19 14:34 1,000 mg ONCE ONE Administration Famotidine/Sodium Chloride 20 mg in 50 mls @ 100 mls/hr 02/28/19 14:33 15:44 Pepcid 20 Mg Premixed Ivpb - IVPB 02/28/19 15:02 100 mls/hr ONCE ONE Administration Ondansetron HCl 4 mg 02/28/19 14:33 02/28/19 15:44 Zofran Injection IVPUSH 02/28/19 14:34 4 mg ONCE ONE Administration Sodium Chloride 1,000 ml 02/28/19 14:33 02/28/19 15:43 Normal Saline - IV 02/28/19 14:34 1,000 ml ONCE ONE Administration Medical Decision Making - Medical Decision Making 02/28/19 17:03 case signed out from the prior attending pending labs and xray imaging -elevated wbc -blood in urine -xray without acute findings, but limited due to body habitus 02/28/19 18:14 pt re-eval: discussed labs and imaging pt really does not want ct imaging pt states he is feeling better than when he came in will hydrate with 1L nss and repeat labs, will add maalox 02/28/19 18:58 pt feeling much better after maalox po challenge given and passed no pain and no nausea will repeat cbc 02/28/19 19:58 pt states he received a call from his doc at [facility] that he does have a viral gastroenteritis pt has tolerated po and states he is feeling better pt pending repeat cbc 02/28/19 20:09 pt still with elevated wbc - however feeling better, tolerated po and requesting to go home discussed all labs and all reasons to return to the ED pt stable for dc to home *DC/Admit/Observation/Transfer Diagnosis at time of Disposition: Nausea and vomiting Abdominal pain Qualifiers: Abdominal location: unspecified location Qualified Code(s): R10.9 - Unspecified abdominal pain - Discharge Dispostion Disposition: HOME Condition at time of disposition: Stable Decision to Admit order: No - Prescriptions Prescriptions: Famotidine [Pepcid -] 20 mg PO DAILY #7 tablet Ondansetron [Zofran *Odt*] 8 mg SL TID PRN #10 od.tablet PRN Reason: Nausea - Referrals Referrals: Luis Miguel Bob MD [Staff Physician] - Antonio Ramirez MD [Staff Physician] - - Patient Instructions Printed Discharge Instructions: DI for Nausea -- Adult, DI for Epigastric Pain Additional Instructions: Please take all medications as prescribed. Please drink plenty of clear liquids. Please follow up with your PMD. Please return to the ED with any further concerns or complaints. - Post Discharge Activity Forms/Work/School Notes: Back to Work
[2019-02-28] MEDS ORDERED: MAG HYDROX/AL HYDROX/SIMETH 30 ML UNIT-DOSE CUP PO ONE (17:49)
[2019-02-28] MEDS ORDERED: MAG HYDROX/AL HYDROX/SIMETH 30 ML UNIT-DOSE CUP ONE (17:54)
[2019-02-28 17:58] LABS: MAGNESIUM 1.9 mg/dL (1.8-2.4); PHOSPHOROUS 4.3 mg/dL (2.5-4.9)
[2019-02-28 18:48] VITALS: BP 117/77; PULSE 101
[2019-02-28 19:51] LABS: BASO % 0.5 % (0-2.0); EOS % 0.6 % (0-4.5); HEMATOCRIT 39.2 % (35.4-49); HEMOGLOBIN 12.8 GM/dL (11.7-16.9); LYMPH % 9.7 % (8-40); MCH 27.7 pg (25.7-33.7); MCHC 32.6 g/dl (32.0-35.9); MEAN CELL VOLUME 85.1 fl (80-96); MONO % 6.6 % (3.8-10.2); NEUT % 82.6 % (42.8-82.8); PLATELET COUNT 238 K/MM3 (134-434); RBC 4.61 M/mm3 (4.00-5.60); RDW 14.5 % (11.9-15.9)
== END 2019-02-28 20:30 | disposition home or self-care (01) ==
LOC: JER 13:37
PROC: 3E033GC Introduction of Other Therapeutic Substance into Peripheral Vein, Percutaneous Approach (ICD-10-PCS; principal; 2019-02-28)
PROC: 3E033NZ Introduction of Analgesics, Hypnotics, Sedatives into Peripheral Vein, Percutaneous Approach (ICD-10-PCS; 2019-02-28)
PROC: 3E033GC Introduction of Other Therapeutic Substance into Peripheral Vein, Percutaneous Approach (ICD-10-PCS; 2019-02-28)
PROC: 3E0337Z Introduction of Electrolytic and Water Balance Substance into Peripheral Vein, Percutaneous Approach (ICD-10-PCS; 2019-02-28)
DX: R10.9 Unspecified abdominal pain (principal); R11.2 Nausea with vomiting, unspecified; D72.829 Elevated white blood cell count, unspecified; E66.09 Other obesity due to excess calories; Z68.43 Body mass index [BMI] 50.0-59.9, adult
CPT/HCPCS: 36415; 74019-TC-FY; 80053; 81003; 82550; 83690; 83735; 84100; 84484; 85025; 85610; 86850; 86900; 86901; 87086; 87389; 99283-25; J0131; J7030

== ENCOUNTER 2019-03-26 11:14 | Emergency (ER) | payer OTHER, BC ==
[2019-03-26 11:18] VITALS: BP 141/86; PULSE 95; TEMP 98; BMI 55.6
[2019-03-26] MEDS ORDERED: diphenhydrAMINE HCL 25 MG CAPSULE (FP) PO ONE ×2 (11:51→11:58)
--- NOTE | 2019-03-26 12:01 | PDOC ---
History of Present Illness - General Chief Complaint: Bite Stated Complaint: INSECT/BEE BITE Time Seen by Provider: 03/26/19 11:29 - History of Present Illness Initial Comments: 03/26/19 11:53 38-year-old male with chronic back pain presents for evaluation of multiple bee stings which occurred about 2 hours prior to arrival no shortness of breath chest pain or itchiness just localized pain on the areas of the stings. Past History - Past Medical History Allergies/Adverse Reactions: Allergies Allergy/AdvReac Type Severity Reaction Status Date / Time Penicillins Allergy Intermediate "hives-pimp Verified 03/26/19 11:18 les" Home Medications: Ambulatory Orders Doxycycline Hyclate [Vibramycin -] 100 mg PO BID #14 cap 02/12/19 Famotidine [Pepcid -] 20 mg PO DAILY #7 tablet 02/28/19 Ondansetron [Zofran *Odt*] 8 mg SL TID PRN #10 od.tablet 02/28/19 Anemia: No Asthma: No Cancer: No Cardiac Disorders: No CVA: No COPD: No CHF: No DVT: No Dementia: No Diabetes: No GI Disorders: Yes (OBESITY morbid) Disorders: No HTN: Yes Hypercholesterolemia: No Liver Disease: No Seizures: No Thyroid Disease: No Other medical history: 4 herniated back discs - Surgical History Abdominal Surgery: No Appendectomy: No Cardiac Surgery: No Cholecystectomy: No Lung Surgery: No Neurologic Surgery: No Orthopedic Surgery: Yes (right knee sx, LEFT KNEE SX) - Family Disease History Family Disease History: Heart Disease: Mother (CHF) - Immunization History Immunization Up to Date: Yes - Suicide/Smoking/Psychosocial Hx Smoking Status: Yes Smoking History: Never smoked Have you smoked in the past 12 months: No Number of Cigarettes Smoked Daily: 4 If you are a former smoker, when did you quit?: 2014 'Breaking Loose' booklet given: 11/17/17 Hx Alcohol Use: No Drug/Substance Use Hx: Yes Substance Use Type: None, Marijuana Hx Substance Use Treatment: No (MARIJUANA, MEDICINAL) Review of Systems - Review of Systems HEENTM: No: Throat Pain, Throat Swelling, Difficulty Swallowing Respiratory: No: Shortness of Breath *Physical Exam - Vital Signs Last Vital Signs Temp Pulse Resp BP Pulse Ox 98 F 95 H 18 141/86 99 03/26/19 11:15 03/26/19 11:15 03/26/19 11:15 03/26/19 11:15 03/26/19 11:15 - Physical Exam Comments: 03/26/19 11:53 HEAD: NC/AT EYES: Conjuntiva clear Ears: Canals and TM's normal NOSE: No d/c THROAT: Moist mucous membrances, oral pharanx clear, uvula midline NECK: Supple without adenopathy CARDIAC: S1 S2 LUNGS: CTA Full and Equal breath sounds ABDOMEN: Soft NT ND MS: Full ROM in all joints without edema NEUROLOGIC: No gross sensory or motor deficits, NVID SKIN: Normal color and temperature no lesions or rashes raised wheals on the right hand elbow and left hand. No visible stinger is no surrounding erythema. No indication of infection Medical Decision Making - Medical Decision Making 03/26/19 11:56 supportive care for localized reactions to bee stings *DC/Admit/Observation/Transfer Diagnosis at time of Disposition: Bee sting - Discharge Dispostion Disposition: HOME Condition at time of disposition: Stable Decision to Admit order: No - Referrals Referrals: Ana Laura Bonilla MD [Primary Care Provider] - - Patient Instructions Printed Discharge Instructions: DI for Insect Bites and Stings - Post Discharge Activity
== END 2019-03-26 12:04 | disposition home or self-care (01) ==
LOC: JERFT 11:14
DX: T63.441A Toxic effect of venom of bees, accidental (unintentional), initial encounter (principal); T63.444A Toxic effect of venom of bees, undetermined, initial encounter; M79.642 Pain in left hand; M79.641 Pain in right hand; M25.521 Pain in right elbow; Y92.89 Other specified places as the place of occurrence of the external cause
CPT/HCPCS: 99281-25

== ENCOUNTER 2019-06-18 12:55 | Inpatient (IN) | payer BC, OTHER ==
[2019-06-18] MEDS ORDERED: ONDANSETRON 4 MG/2 ML VIAL IVPUSH ONE ×2 (13:32→14:27)
[2019-06-18] MEDS ORDERED: FAMOTIDINE 20 MG/50 ML IVPB 20 MG/50 ML MG IVPB ONE (13:32)
[2019-06-18] MEDS ORDERED: MAG HYDROX/AL HYDROX/SIMETH 30 ML UNIT-DOSE CUP PO ONE (13:32)
[2019-06-18] MEDS ORDERED: SODIUM CHLORIDE 1,000 ML IV STA ×2 (13:33→15:47)
--- NOTE | 2019-06-18 13:50 | PDOC ---
History of Present Illness - General Chief Complaint: Pain Stated Complaint: ABD. PAIN Time Seen by Provider: 06/18/19 13:23 History Source: Patient - History of Present Illness Timing/Duration: reports: getting worse Quality: reports: severe Abdominal Pain Onset Location: reports: epigastric Past History - Past Medical History Allergies/Adverse Reactions: Allergies Allergy/AdvReac Type Severity Reaction Status Date / Time Penicillins Allergy Intermediate "hives-pimp Verified 06/18/19 12:59 les" Anemia: No Asthma: No Cancer: No Cardiac Disorders: No CVA: No COPD: No CHF: No DVT: No Dementia: No Diabetes: No GI Disorders: Yes (OBESITY morbid) Disorders: No HTN: Yes Hypercholesterolemia: No Liver Disease: No Seizures: No Thyroid Disease: No - Surgical History Abdominal Surgery: No Appendectomy: No Cardiac Surgery: No Cholecystectomy: No Lung Surgery: No Neurologic Surgery: No Orthopedic Surgery: Yes (right knee sx, LEFT KNEE SX) - Immunization History Immunization Up to Date: Yes - Psycho Social/Smoking Cessation Hx Smoking Status: Yes Smoking History: Never smoked Have you smoked in the past 12 months: Yes Number of Cigarettes Smoked Daily: 4 If you are a former smoker, when did you quit?: 2014 'Breaking Loose' booklet given: 11/17/17 Hx Alcohol Use: Yes Drug/Substance Use Hx: Yes Substance Use Type: None, Marijuana Hx Substance Use Treatment: No (MARIJUANA, MEDICINAL) Review of Systems - Review of Systems Constitutional: No: Chills, Fever Respiratory: No: Shortness of Breath Cardiac (ROS): No: Chest Pain ABD/GI: Yes: Nausea, Abdominal cramping. No: Constipated, Diarrhea, Vomiting : No: Dysuria *Physical Exam - Vital Signs Last Vital Signs Temp Pulse Resp BP Pulse Ox 97.8 F 91 H 18 111/86 98 06/18/19 12:56 06/18/19 12:56 06/18/19 12:56 06/18/19 12:56 06/18/19 12:56 - Physical Exam Comments: 06/18/19 13:50 actively vomiting in ER General Appearance: Yes: Appropriately Dressed HEENT: positive: Normal Voice Neck: positive: Supple Respiratory/Chest: positive: Lungs Clear, Normal Breath Sounds. negative: Respiratory Distress Cardiovascular: positive: Regular Rate, S1, S2 Gastrointestinal/Abdominal: positive: Normal Bowel Sounds, Tender (to mid upper abd), Soft. negative: Distended, Guarding, Rebound Musculoskeletal: negative: CVA Tenderness Integumentary: positive: Dry, Warm Neurologic: positive: Fully Oriented, Alert, Normal Mood/Affect ED Treatment Course - LABORATORY CBC & Chemistry Diagram: 06/18/19 14:10 06/18/19 14:10 Medical Decision Making - Medical Decision Making 06/18/19 13:45 39 yo morbidly obesed male, chronic back pain, takes marijuana "pill" as needed for his back pain prescribed by his PMD as per pt, here w/ severe upper abd pain w/ nausea since yesterday. No vomiting, change in BM, f/c. Denies CP or SOB. Was seen earlier this year for same and given Pepcid and Maalox which did help sig per pt. No history of gallstones and none seen on US 09/2017 per records here See exam Possibly gastritis/GERD, less likley acute marsha, pancreatitis, renal colic, appy or cardiac -GI cokctail -IVF -labs -EKG -reassess 06/18/19 15:02 06/18/19 16:24 Lipase strikingly elevated > 8000. Patient denies alcohol use or known history of gallstones. Given morbid obesity, will send triglyceride level at this time. Ultrasound pending. WBC ~15, m/l 2/2 n/v, less likely 2/2 acute marsha. Plan is to admit for IV fluids and pain control, etc. Patient currently n.p.o. Hospitalist made aware 06/18/19 17:57 Per specialist, contacted Dr. Pepper of GI who states he will see patient in a.m. Ultrasound read pending at this time Discharge - Discharge Information Problems reviewed: Yes Clinical Impression/Diagnosis: Epigastric pain Pancreatitis Qualifiers: Chronicity: acute Pancreatitis type: unspecified pancreatitis type Acute pancreatitis complication: unspecified Qualified Code(s): K85.90 - Acute pancreatitis without necrosis or infection, unspecified Nausea and vomiting Qualifiers: Vomiting type: unspecified Vomiting Intractability: intractable Qualified Code( s): R11.2 - Nausea with vomiting, unspecified Condition: Fair - Admission Yes - Follow up/Referral - Patient Discharge Instructions - Post Discharge Activity
[2019-06-18] MEDS ORDERED: ONDANSETRON 4 MG/2 ML VIAL ONE (14:32)
[2019-06-18 14:42] LABS: BASO % 0.9 % (0-2.0); EOS % 0.9 % (0-4.5); HEMATOCRIT 39.9 % (35.4-49); HEMOGLOBIN 12.6 GM/dL (11.7-16.9); LYMPH % 11.6 % (8-40); MCH 26.6 pg (25.7-33.7); MCHC 31.7 g/dl (32.0-35.9); MEAN PLT VOLUME 8.9 fl (7.5-11.1); MONO % 6.9 % (3.8-10.2); NEUT % 79.7 % (42.8-82.8); PLATELET COUNT 246 K/MM3 (134-434); RBC 4.75 M/mm3 (4.00-5.60); RDW 15.8 % (11.9-15.9); WHITE BLOOD COUNT 15.7 K/mm3 (4.0-10.0)
[2019-06-18] MEDS ORDERED: ACETAMINOPHEN 1000 MG/100 ML VIAL (NON FORMULARY) IVPB ONE ×2 (15:02→20:32)
[2019-06-18 15:05] LABS: ALBUMIN 2.8 g/dl (3.4-5.0); BILIRUBIN,TOTAL 0.5 mg/dL (0.2-1); BLOOD UREA NITROGEN 15.6 mg/dL (7-18); CALCIUM 9.2 mg/dL (8.5-10.1); CREATININE 0.7 mg/dL (0.55-1.3)
[2019-06-18] MEDS ORDERED: HYDROmorphone HCL CARPU-JECT 2 MG/1 ML DISP.SYRIN IVPB ONE (15:48)
[2019-06-18] MEDS ORDERED: HYDROmorphone HCl 2 MG/ML VIAL ONE (15:50)
[2019-06-18] MEDS ORDERED: SODIUM CHLORIDE 1,000 ML IV SCH (17:00)
--- NOTE | 2019-06-18 17:10 | HP ---
Admitting History and Physical - Primary Care Physician PCP: Ana Laura Bonilla - Admission Chief Complaint: abd pain, nausea & vomiting History Source: Patient Limitations to Obtaining History: No Limitations - Past Medical History Cardiovascular: Yes: HTN, Hyperlipdemia - Past Surgical History Additional Past Surgical History: knee surgery - Smoking History Smoking history: Never smoked Have you smoked in the past 12 months: Yes Aproximately how many cigarettes per day: 4 If you are a former smoker, when did you quit?: 2014 - Alcohol/Substance Use Hx Alcohol Use: Yes Home Medications - Allergies Allergies/Adverse Reactions: Allergies Allergy/AdvReac Type Severity Reaction Status Date / Time Penicillins Allergy Intermediate "hives-pimp Verified 06/18/19 12:59 les" Family Medical History Other Family History: mother - from "obesity" Review of Systems - Review of Systems Constitutional: reports: No Symptoms Eyes: reports: No Symptoms HENT: reports: No Symptoms Neck: reports: No Symptoms Cardiovascular: reports: No Symptoms Respiratory: reports: No Symptoms Gastrointestinal: reports: Abdominal Pain (upper right quad) Genitourinary: reports: No Symptoms Breasts: reports: No Symptoms Reported Musculoskeletal: reports: Back Pain Integumentary: reports: No Symptoms Neurological: reports: No Symptoms Endocrine: reports: No Symptoms Hematology/Lymphatic: reports: No Symptoms Psychiatric: reports: No Symptoms Physical Examination Vital Signs: Vital Signs Temperature 97.8 F 06/18/19 12:56 Pulse Rate 91 H 06/18/19 12:56 Respiratory Rate 18 06/18/19 12:56 Blood Pressure 111/86 06/18/19 12:56 O2 Sat by Pulse Oximetry (%) 98 06/18/19 12:56 Constitutional: Yes: Obese (morbidly obese) Eyes: Yes: WNL, Conjunctiva Clear, EOM Intact HENT: Yes: WNL, Atraumatic, Normocephalic Neck: Yes: WNL, Supple, Trachea Midline Cardiovascular: Yes: Tachycardia (90s) Respiratory: Yes: WNL, Regular, CTA Bilaterally, Diminished (at bases due to body habitus) Gastrointestinal: Yes: Normal Bowel Sounds, Soft (no rebound or guarding), Abdomen, Obese ...Rectal Exam: Yes: Deferred Renal/: Yes: WNL Breast(s): Yes: WNL Musculoskeletal: Yes: Back Pain Edema: Yes Edema: LLE: Trace, RLE: Trace Peripheral Pulses WNL: No Peripheral Pulses: Left Radial: 2+, Right Radial: 2+, Left Doralis Pedis: 1+, Right Dorsalis Pedis: 1+, Left Femoral: 2+, Right Femoral: 2+ Integumentary: Yes: WNL Neurological: Yes: WNL, Alert, Oriented ...Motor Strength: WNL Psychiatric: Yes: WNL Labs: CBC, BMP 06/18/19 14:10 06/18/19 14:10 Imaging - Results Ultrasound: Pending Problem List - Problems (1) HTN (hypertension) Assessment/Plan: not on any medciation normotensive presently cont to monitor Code(s): I10 - ESSENTIAL (PRIMARY) HYPERTENSION (2) Prophylactic measure Assessment/Plan: FEN IVF @ 250cc/hr NPO DVT heparin sq Dispo admit to medsurg full code discharge planning Code(s): Z29.9 - ENCOUNTER FOR PROPHYLACTIC MEASURES, UNSPECIFIED (3) Morbid obesity with BMI of 50.0-59.9, adult Assessment/Plan: NPO presently Code(s): E66.01 - MORBID (SEVERE) OBESITY DUE TO EXCESS CALORIES; Z68.43 - BODY MASS INDEX (BMI) 50.0-59.9, ADULT (4) Nausea and vomiting Assessment/Plan: none presently NPo zofran prn IVF Code(s): R11.2 - NAUSEA WITH VOMITING, UNSPECIFIED Qualifiers: Vomiting type: unspecified Vomiting Intractability: intractable Qualified Code(s): R11.2 - Nausea with vomiting, unspecified (5) Abdominal pain Code(s): R10.9 - UNSPECIFIED ABDOMINAL PAIN Qualifiers: Abdominal location: unspecified location Qualified Code(s): R10.9 - Unspecified abdominal pain (6) Pancreatitis Assessment/Plan: lipase elevated to >8K NPO US pending spoke with Dr Evgeny BARR distributed generation project manager-will see pt in am triglycerides sent and pending Code(s): K85.90 - ACUTE PANCREATITIS WITHOUT NECROSIS OR INFECTION, UNSP Qualifiers: Chronicity: acute Pancreatitis type: unspecified pancreatitis type Acute pancreatitis complication: unspecified Qualified Code(s): K85.90 - Acute pancreatitis without necrosis or infection, unspecified Visit type - Emergency Visit Emergency Visit: Yes ED Registration Date: 06/18/19 Care time: The patient presented to the Emergency Department on the above date and was hospitalized for further evaluation of their emergent condition. - New Patient This patient is new to me today: Yes Date on this admission: 06/18/19 - Critical Care Critical Care patient: No
[2019-06-18] MEDS ORDERED: ONDANSETRON 4 MG/2 ML VIAL IVPUSH SCH (17:15)
--- NOTE | 2019-06-18 17:23 | PDOC ---
*Physical Exam - Vital Signs Last Vital Signs Temp Pulse Resp BP Pulse Ox 97.8 F 91 H 18 111/86 98 06/18/19 12:56 06/18/19 12:56 06/18/19 12:56 06/18/19 12:56 06/18/19 12:56 ED Treatment Course - LABORATORY CBC & Chemistry Diagram: 06/20/19 16:10 06/20/19 06:00 - ADDITIONAL ORDERS Additional order review: Laboratory Results 06/18/19 14:10 Sodium 139 Potassium 4.0 Chloride 103 Carbon Dioxide 32 Anion Gap 5 L BUN 15.6 Creatinine 0.7 Est GFR (CKD-EPI)AfAm 138.75 Est GFR (CKD-EPI)NonAf 119.71 Random Glucose 97 Calcium 9.2 Total Bilirubin 0.5 AST 16 ALT 24 Alkaline Phosphatase 74 Total Protein 7.0 Albumin 2.8 L Lipase 8175 H 06/18/19 14:10 RBC 4.75 MCV 84.0 MCHC 31.7 L RDW 15.8 MPV 8.9 Neutrophils % 79.7 Lymphocytes % 11.6 Monocytes % 6.9 Eosinophils % 0.9 Basophils % 0.9 - Medications Given in the ED: ED Medications Discontinued Medications Generic Name Dose Route Start Last Admin Trade Name Freq PRN Reason Stop Dose Admin Acetaminophen 1,000 mg 06/18/19 15:02 06/18/19 15:16 Ofirmev Injection - IVPB 06/18/19 15:03 1,000 mg ONCE ONE Administration Al Hydroxide/Mg Hydroxide 30 ml 06/18/19 13:32 06/18/19 14:19 Mylanta Oral Suspension - PO 06/18/19 13:33 30 ml ONCE ONE Administration Hydromorphone HCl 2 mg 06/18/19 15:48 06/18/19 16:26 Dilaudid Injection - IVPB 06/18/19 15:49 2 mg ONCE ONE Administration Famotidine/Sodium Chloride 20 mg in 50 mls @ 100 mls/hr 06/18/19 13:32 14:19 Pepcid 20 Mg Premixed Ivpb - IVPB 06/18/19 14:01 100 mls/hr ONCE ONE Administration Sodium Chloride 1,000 mls @ 1,000 mls/hr 06/18/19 13:33 06/18/19 14:19 Normal Saline - IV 06/18/19 14:32 1,000 mls/hr ASDIR STA Administration Sodium Chloride 1,000 mls @ 1,000 mls/hr 06/18/19 15:47 06/18/19 15:57 Normal Saline - IV 06/18/19 16:46 1,000 mls/hr ASDIR STA Administration Ondansetron HCl 4 mg 06/18/19 13:32 06/18/19 14:19 Zofran Injection IVPUSH 06/18/19 13:33 4 mg ONCE ONE Administration Ondansetron HCl 4 mg 06/18/19 14:27 06/18/19 14:32 Zofran Injection IVPUSH 06/18/19 14:28 4 mg ONCE ONE Administration Medical Decision Making - Medical Decision Making 06/18/19 17:20 Mr. Beatty is a 39 yo morbidly obese male who presents to the ER with a complaint of severe upper abdominal pain and nausea which began yesterday. Initially no vomiting, no diarrhea Pt has had similar symptoms in the past, thought to be gastritis Pt has no know history of cholecystitis On examination: Pt actively retching/vomiting Tacycardiac Lungs are clear to ascultation epigastric tenderness to palpation, no involuntary guarding, no rebound No lower abdominal tenderness to palpation Pt seen by Midlevel Provider under my direct supervision Pt interviewed and examined Ancillary studies reviewed - Labs reveal lipase greater than 8000 We will do right upper quadrant ultrasound Will also add triglyceride level I agree with plan as outlined by Midlevel Provider Admit to hospitalist service Discharge - Discharge Information Problems reviewed: Yes Clinical Impression/Diagnosis: Epigastric pain Pancreatitis Qualifiers: Chronicity: acute Pancreatitis type: unspecified pancreatitis type Acute pancreatitis complication: unspecified Qualified Code(s): K85.90 - Acute pancreatitis without necrosis or infection, unspecified Nausea and vomiting Qualifiers: Vomiting type: unspecified Vomiting Intractability: intractable Qualified Code( s): R11.2 - Nausea with vomiting, unspecified Condition: Fair Disposition: TRANSFER ACUTE CARE/OTHER HOSP - Follow up/Referral - Patient Discharge Instructions - Post Discharge Activity
[2019-06-18] MEDS: SODIUM CHLORIDE 1,000 ML IV SCH (17:56)
[2019-06-18] MEDS: ONDANSETRON 4 MG/2 ML VIAL IVPUSH PRN (19:41)
[2019-06-18] MEDS: HEPARIN NA (PORCINE) 5,000 UNITS/ML 1ML VIAL SQ SCH (21:00)
[2019-06-18] MEDS ORDERED: MORPHINE SULFATE 2 MG/ML VIAL IVPUSH ONE (23:28)
[2019-06-19] MEDS: ONDANSETRON 4 MG/2 ML VIAL IVPUSH PRN ×3 (01:42→16:59)
[2019-06-19] MEDS: SODIUM CHLORIDE 1,000 ML IV SCH ×4 (03:01→21:29)
--- NOTE | 2019-06-19 08:27 | PN ---
Progress Note, Physician Chief Complaint: Diffuse abdominal pain. States he is hungry History of Present Illness: 39 yo morbidly obese male, chronic back pain, takes marijuana "pill" as needed for his back pain prescribed by his PMD as per pt, here w/ severe upper abd pain w/ nausea since yesterday. No vomiting, mild nausea Was seen earlier this year for same and given Pepcid and Maalox which did had no effect now. No history of gallstones and none seen on US 09/2017 - Current Medication List Current Medications: Active Medications Heparin Sodium (Porcine) (Heparin -) 5,000 unit SQ BID [facility] Last Admin: 06/18/19 21:00 Dose: 5,000 unit Sodium Chloride (Normal Saline -) 1,000 mls @ 250 mls/hr IV ASDIR [facility] Last Admin: 06/19/19 06:27 Dose: 250 mls/hr Ondansetron HCl (Zofran Injection) 4 mg IVPUSH Q6H PRN PRN Reason: NAUSEA AND/OR VOMITING Last Admin: 06/19/19 01:42 Dose: 4 mg - Objective Vital Signs: Vital Signs Temperature 99 F 06/19/19 06:00 Pulse Rate 105 H 06/19/19 06:00 Respiratory Rate 20 06/19/19 06:00 Blood Pressure 148/86 06/19/19 06:00 O2 Sat by Pulse Oximetry (%) 95 06/18/19 20:58 Additional Findings/Remarks: Constitutional: Yes: Obese (morbidly obese) Eyes: Yes: WNL, Conjunctiva Clear, EOM Intact HENT: Yes: WNL, Atraumatic, Normocephalic Neck: Yes: WNL, Supple, Trachea Midline Cardiovascular: Yes: Tachycardia (90s) Respiratory: Yes: WNL, Regular, CTA Bilaterally, Diminished (at bases due to body habitus) Gastrointestinal: Yes: Normal Bowel Sounds, Soft (no rebound or guarding), Abdomen, Obese ...Rectal Exam: Yes: Deferred Renal/: Yes: WNL Breast(s): Yes: WNL Musculoskeletal: Yes: Back Pain Edema: Yes Edema: LLE: Trace, RLE: Trace Peripheral Pulses WNL: No Peripheral Pulses: Left Radial: 2+, Right Radial: 2+, Left Doralis Pedis: 1+, Right Dorsalis Pedis: 1+, Left Femoral: 2+, Right Femoral: 2+ Integumentary: Yes: WNL Neurological: Yes: WNL, Alert, Oriented ...Motor Strength: WNL Psychiatric: Yes: WNL Labs: CBC, BMP 06/18/19 14:10 06/18/19 14:10 - ....Imaging Ultrasound: Report Reviewed (Limited view due to body habitus. No evidence of choleliathiasis or acute cholecyctitis. No biliary dilitation. 2 cm right hepatic echogenic lesion possibly representing hemangioma-2 month follow up correlation. 1.7 cm right renal pole upper echogenic focus arifact vs non obs calculus. No right hydro seen) Problem List - Problems (1) HTN (hypertension) Assessment/Plan: not on any medciation normotensive presently cont to monitor Code(s): I10 - ESSENTIAL (PRIMARY) HYPERTENSION (2) Prophylactic measure Assessment/Plan: FEN IVF @ 250cc/hr NPO, lipase imrpoving DVT heparin sq Dispo admit to medsurg full code discharge planning Code(s): Z29.9 - ENCOUNTER FOR PROPHYLACTIC MEASURES, UNSPECIFIED (3) Morbid obesity with BMI of 50.0-59.9, adult Assessment/Plan: NPO presently weight loss counseling Code(s): E66.01 - MORBID (SEVERE) OBESITY DUE TO EXCESS CALORIES; Z68.43 - BODY MASS INDEX (BMI) 50.0-59.9, ADULT (4) Nausea and vomiting Assessment/Plan: none presently NPO zofran prn IVF Code(s): R11.2 - NAUSEA WITH VOMITING, UNSPECIFIED Qualifiers: Vomiting type: unspecified Vomiting Intractability: intractable Qualified Code(s): R11.2 - Nausea with vomiting, unspecified (5) Abdominal pain Assessment/Plan: mild diffuse pain GI pending to evaluate NPO Ofrimev prn pain Code(s): R10.9 - UNSPECIFIED ABDOMINAL PAIN Qualifiers: Abdominal location: unspecified location Qualified Code(s): R10.9 - Unspecified abdominal pain (6) Pancreatitis Assessment/Plan: lipase elevated to >8K on admission, down to [address] Evgeny BARR field representative/health education yesterday-will have GI services see today pt triglycerides 70 Code(s): K85.90 - ACUTE PANCREATITIS WITHOUT NECROSIS OR INFECTION, UNSP Qualifiers: Chronicity: acute Pancreatitis type: unspecified pancreatitis type Acute pancreatitis complication: unspecified Qualified Code(s): K85.90 - Acute pancreatitis without necrosis or infection, unspecified Visit type - Emergency Visit Emergency Visit: Yes ED Registration Date: 06/18/19 Care time: The patient presented to the Emergency Department on the above date and was hospitalized for further evaluation of their emergent condition. - New Patient This patient is new to me today: No - Critical Care Critical Care patient: No - Discharge Referral Referred to [facility] Med P.C.: No
[2019-06-19] MEDS ORDERED: morphine SULFATE 4 MG/ML VIAL IVPUSH PRN (09:22)
[2019-06-19] MEDS ORDERED: PANTOPRAZOLE SODIUM 40 MG VIAL IVPUSH SCH (10:00)
[2019-06-19] MEDS: HEPARIN NA (PORCINE) 5,000 UNITS/ML 1ML VIAL SQ SCH ×2 (10:08→21:08)
[2019-06-19 11:53] LABS: BASO % 1.8 % (0-2.0); EOS % 0.7 % (0-4.5); HEMATOCRIT 37.3 % (35.4-49); LYMPH % 6.4 % (8-40); MCH 26.5 pg (25.7-33.7); MCHC 32.2 g/dl (32.0-35.9); MEAN CELL VOLUME 82.4 fl (80-96); MEAN PLT VOLUME 8.7 fl (7.5-11.1); MONO % 4.6 % (3.8-10.2); NEUT % 86.5 % (42.8-82.8); PLATELET COUNT 246 K/MM3 (134-434); RBC 4.53 M/mm3 (4.00-5.60); RDW 15.5 % (11.9-15.9); WHITE BLOOD COUNT 15.4 K/mm3 (4.0-10.0)
[2019-06-19 12:18] LABS: PH,URINE 7.5 (5.0-8.0); URINE APPEARANCE CLEAR; URINE BILIRUBIN NEGATIVE (NEGATIVE); URINE COLOR YELLOW; URINE GLUCOSE (UA) NEGATIVE (NEGATIVE); URINE KETONE 1+ (NEGATIVE); URINE LEUK ESTERASE NEGATIVE (NEGATIVE); URINE NITRITE NEGATIVE (NEGATIVE); URINE PROTEIN NEGATIVE (NEGATIVE)
[2019-06-19 12:23] LABS: ALBUMIN 2.8 g/dl (3.4-5.0); BILIRUBIN,TOTAL 0.9 mg/dL (0.2-1); BLOOD UREA NITROGEN 12.5 mg/dL (7-18); CALCIUM 8.7 mg/dL (8.5-10.1); CREATININE 0.6 mg/dL (0.55-1.3); INR 1.2 (0.83-1.09); MAGNESIUM 2.3 mg/dL (1.8-2.4); PHOSPHOROUS 3.2 mg/dL (2.5-4.9); POTASSIUM 3.8 mmol/L (3.5-5.1); PROTHROMBIN TIME (PATIENT) 14.2 SEC (9.7-13.0); TOT PROT 6.5 g/dl (6.4-8.2)
--- NOTE | 2019-06-19 12:47 | EKG ---
Test Reason : Blood Pressure : / mmHG Vent. Rate : 081 BPM Atrial Rate : 081 BPM P-R Int : 160 ms QRS Dur : 102 ms QT Int : 390 ms P-R-T Axes : 034 060 044 degrees QTc Int : 453 ms SINUS RHYTHM WITH SINUS ARRHYTHMIA WITH OCCASIONAL PREMATURE VENTRICULAR COMPLEXES OTHERWISE NORMAL ECG WHEN COMPARED WITH ECG OF 15-DEC-2017 15:38, PREMATURE VENTRICULAR COMPLEXES ARE NOW PRESENT Confirmed by ANKUSH ROLDAN, ROSALIO ([id number]) on 06/19/2019 12:47:15 PM Referred By: Confirmed By:ROSALIO LECHUGA MD
[2019-06-19 13:54] LABS: ANISOCYTOSIS 1+; MACROCYTOSIS 0; PLATELET ESTIMATE NORMAL
[2019-06-19] MEDS: ACETAMINOPHEN 1000 MG/100 ML VIAL (NON FORMULARY) IVPB PRN (16:58)
--- NOTE | 2019-06-19 17:48 | CON.GI ---
Consult Consult Specialty:: Gastroenterology Reason for Consultation:: Abdominal pain - History of Present Illness Chief Complaint: Abdominal pain History of Present Illness: 39yo male h/o morbid obesity, chronic back pain presenting with abdominal pain, nausea and vomiting x 2 days. Pt reports developing abdominal pain mostly in epigastric and periumbilical region 2 days ago with associated nausea/vomiting. No obvious trigger, reports some radiation towards back though does report chronic back pain. Denies change in bowel pattern, denies fever/chills. Reports somewhat similar symptoms in February prompting ED evaluation without acute findings at that time. Feeling better today, still upper abdominal pain though improving. Denies etoh use. US limited due to body habitus though revealing hepatic steatosis, and 2cm right hepatic lobe lesion possibly hemangioma, no stones or biliary dilation. - History Source History Provided By: Patient Limitations to Obtaining History: No Limitations - Past Medical History Cardio/Vascular: Yes: HTN, Hyperlipdemia - Alcohol/Substance Use Hx Alcohol Use: Yes - Smoking History Smoking history: Never smoked Have you smoked in the past 12 months: Yes Aproximately how many cigarettes per day: 4 If you are a former smoker, when did you quit?: 2015 Home Medications - Allergies Allergies/Adverse Reactions: Allergies Allergy/AdvReac Type Severity Reaction Status Date / Time Penicillins Allergy Intermediate "hives-pimp Verified 06/18/19 12:59 les" Review of Systems - Review of Systems Constitutional: reports: No Symptoms Cardiovascular: reports: No Symptoms Respiratory: reports: No Symptoms Gastrointestinal: reports: Abdominal Pain, Nausea Musculoskeletal: reports: Back Pain Physical Exam-GI Vital Signs: Vital Signs Temperature 99.8 F H 06/19/19 14:00 Pulse Rate 110 H 06/19/19 14:00 Respiratory Rate 20 06/19/19 14:00 Blood Pressure 125/76 06/19/19 14:00 O2 Sat by Pulse Oximetry (%) 95 06/18/19 20:58 Constitutional: Yes: No Distress, Calm Cardiovascular: Yes: WNL, Regular Rate and Rhythm Respiratory: Yes: WNL, Regular, CTA Bilaterally ...Palpate: Yes: Other (Abd soft obese, mildly tender in epigastrium and periumbilical region, nondistended) Labs: CBC, BMP 06/19/19 11:28 06/19/19 11:28 INR, PTT INR 1.20 (0.83-1.09) H 06/19/19 11:28 Imaging - Results Ultrasound: Report Reviewed Problem List - Problems (1) Abdominal pain Assessment/Plan: 39yo male h/o morbid obesity, chronic back pain presenting with abdominal pain, nausea and vomiting x 2 days. Lipase ~8000, normal LFTs. Clinical presentation likely consistent with acute pancreatitis unclear etiology, no obvious stones and TGs not significantly elevated. Cannot exclude passed stone or microlithiasis vs idiopathic. -Continue supportive measures -Aggressive IVF, NS @ 250cc/hr x 24-48 hours then reassess -NPO for now -PPI daily -Check IGG4 -Would recommend CT or MRI liver to further evaluate liver lesion however due to weight (>350lbs) cannot currently undergo scan. Would recommend follow up ultrasound. Code(s): R10.9 - UNSPECIFIED ABDOMINAL PAIN Qualifiers: Abdominal location: unspecified location Qualified Code(s): R10.9 - Unspecified abdominal pain
[2019-06-19] MEDS: MORPHINE SULFATE 2 MG/ML VIAL IVPUSH PRN (20:43)
[2019-06-20] MEDS: MORPHINE SULFATE 2 MG/ML VIAL IVPUSH PRN ×2 (03:04→21:17)
[2019-06-20] MEDS: SODIUM CHLORIDE 1,000 ML IV SCH ×2 (03:08→11:16)
[2019-06-20] MEDS: ACETAMINOPHEN 1000 MG/100 ML VIAL (NON FORMULARY) IVPB PRN (05:26)
[2019-06-20 09:27] LABS: BASO % 0.3 % (0-2.0); EOS % 0.3 % (0-4.5); HEMATOCRIT 36.9 % (35.4-49); HEMOGLOBIN 11.9 GM/dL (11.7-16.9); LYMPH % 5.4 % (8-40); MCH 26.8 pg (25.7-33.7); MCHC 32.2 g/dl (32.0-35.9); MEAN CELL VOLUME 83.1 fl (80-96); MEAN PLT VOLUME 8.8 fl (7.5-11.1); MONO % 6.6 % (3.8-10.2); NEUT % 87.4 % (42.8-82.8); PLATELET COUNT 218 K/MM3 (134-434); RBC 4.43 M/mm3 (4.00-5.60); RDW 15.8 % (11.9-15.9); WHITE BLOOD COUNT 18.9 K/mm3 (4.0-10.0)
[2019-06-20] MEDS: HEPARIN NA (PORCINE) 5,000 UNITS/ML 1ML VIAL SQ SCH (09:54)
[2019-06-20] MEDS ORDERED: PANTOPRAZOLE SODIUM 40 MG VIAL IVPUSH SCH (10:00)
[2019-06-20 10:03] LABS: ALBUMIN 2.5 g/dl (3.4-5.0); BILIRUBIN,TOTAL 1.8 mg/dL (0.2-1); BLOOD UREA NITROGEN 13.5 mg/dL (7-18); CALCIUM 8.4 mg/dL (8.5-10.1); CREATININE 0.7 mg/dL (0.55-1.3); MAGNESIUM 1.9 mg/dL (1.8-2.4); POTASSIUM 3.6 mmol/L (3.5-5.1); TOT PROT 6.2 g/dl (6.4-8.2)
--- NOTE | 2019-06-20 11:32 | PN ---
Physical Exam: SUBJECTIVE: Patient seen and examined, denies any shortness of breath or coughing. states he vomited yesterday, but not since. no nausea wants to eat. OBJECTIVE: wbc 18 with tachycardia and fevers. patient denies any malaise wbc high with left lower lobe hazyness ?aspiration on chest xray lungs sound clear, right base diminished Patient with fevers and elevated wbc of unknown origin, can have a developing abscess vs pneumonia. can also have other acute abdominal pathology, but since he weights 459 lbs, he exceeds the weight limit of the CT scan/MRI. Spoke to director dental services and patient is not a candidate for imaging at [facility] if weighs above 450 lbs. called [facility] and expressed my concern of this young patient developing severe sepsis without a clear source. Spoke to Dr. Floyd Mahajan at [facility] who accepted patient for transfer and confirmed that patient can be imaged there. Dr. Mahajan made aware that patient has a pending CBC at [facility], and if elevated, will initiate patient on meropenum (allergy to pcn). I spoke to Dr. Treviño who states that meropenem is appropriate. All transfer forms filled out, patient agrees to transfer. reason for transfer: unable to image patient to evaluate cause of his elevated wbc (now increased to 20) with fevers (102f), and tachycardia (severe sepsis of unknown origin). Vital Signs Period Temp Pulse Resp BP Sys/Mosher Pulse Ox Last 24 Hr 98.6 F-102.7 F 110-126 20-21 109-128/68-89 95 GENERAL: The patient is awake, alert, and fully oriented, in no acute distress. HEAD: Normal with no signs of trauma. EYES: PERRL, extraocular movements intact, sclera anicteric, conjunctiva clear. No ptosis. ENT: Ears normal, nares patent, oropharynx clear without exudates, moist mucous membranes. NECK: Trachea midline, full range of motion, supple. LUNGS: Breath sounds equal, diminished to right lower lobe, otherwise clear HEART: Regular rate and rhythm, tachycardia ABDOMEN: obese abdomen, soft, no pain on palpation EXTREMITIES: 2+ pulses, warm, well-perfused, no edema. NEUROLOGICAL: Normal speech, gait not observed. PSYCH: Normal mood, normal affect. SKIN: Warm, dry, normal turgor, no rashes or lesions noted Laboratory Results - last 24 hr 06/19/19 06/19/19 06/19/19 11:28 11:28 11:28 WBC 15.4 H RBC 4.53 Hgb 12.0 Hct 37.3 MCV 82.4 MCH 26.5 MCHC 32.2 RDW 15.5 Plt Count 246 MPV 8.7 Absolute Neuts (auto) 13.3 H Neutrophils % 86.5 H Neutrophils % (Manual) 88.9 H Band Neutrophils % 0.0 Lymphocytes % 6.4 L D Lymphocytes % (Manual) 10.2 Monocytes % 4.6 Monocytes % (Manual) 0 L Eosinophils % 0.7 Eosinophils % (Manual) 0.0 Basophils % 1.8 Basophils % (Manual) 0.9 Myelocytes % (Man) 0 Promyelocytes % (Man) 0 Blast Cells % (Manual) 0 Nucleated RBC % 0 Metamyelocytes 0 Hypochromia 0 Platelet Estimate Normal Poikilocytosis 0 Anisocytosis 1+ Microcytosis 1+ Macrocytosis 0 PT with INR 14.20 H INR 1.20 H Sodium 137 Potassium 3.8 Chloride 102 Carbon Dioxide 27 Anion Gap 7 L BUN 12.5 Creatinine 0.6 Est GFR (CKD-EPI)AfAm 147.82 Est GFR (CKD-EPI)NonAf 127.55 POC Glucometer Random Glucose 83 Lactic Acid Calcium 8.7 Phosphorus 3.2 Magnesium 2.3 Total Bilirubin 0.9 AST 7 L ALT 20 Alkaline Phosphatase 69 Total Protein 6.5 Albumin 2.8 L Total Amylase 206 H Lipase 753 H Urine Color Urine Appearance Urine pH Ur Specific [place] Urine Protein Urine Glucose (UA) Urine Ketones Urine Blood Urine Nitrite Urine Bilirubin Urine Urobilinogen Ur Leukocyte Esterase 06/19/19 06/19/19 06/20/19 11:30 22:29 05:24 WBC RBC Hgb Hct MCV MCH MCHC RDW Plt Count MPV Absolute Neuts (auto) Neutrophils % Neutrophils % (Manual) Band Neutrophils % Lymphocytes % Lymphocytes % (Manual) Monocytes % Monocytes % (Manual) Eosinophils % Eosinophils % (Manual) Basophils % Basophils % (Manual) Myelocytes % (Man) Promyelocytes % (Man) Blast Cells % (Manual) Nucleated RBC % Metamyelocytes Hypochromia Platelet Estimate Poikilocytosis Anisocytosis Microcytosis Macrocytosis PT with INR INR Sodium Potassium Chloride Carbon Dioxide Anion Gap BUN Creatinine Est GFR (CKD-EPI)AfAm Est GFR (CKD-EPI)NonAf POC Glucometer 81 71 Random Glucose Lactic Acid Calcium Phosphorus Magnesium Total Bilirubin AST ALT Alkaline Phosphatase Total Protein Albumin Total Amylase Lipase Urine Color Yellow Urine Appearance Clear Urine pH 7.5 D Ur Specific [place] 1.021 Urine Protein Negative Urine Glucose (UA) Negative Urine Ketones 1+ H Urine Blood Negative Urine Nitrite Negative Urine Bilirubin Negative Urine Urobilinogen 1.0 Ur Leukocyte Esterase Negative 06/20/19 06/20/19 06/20/19 06:00 08:28 08:30 WBC 18.9 H RBC 4.43 Hgb 11.9 Hct 36.9 MCV 83.1 MCH 26.8 MCHC 32.2 RDW 15.8 Plt Count 218 MPV 8.8 Absolute Neuts (auto) 16.5 H Neutrophils % 87.4 H Neutrophils % (Manual) Band Neutrophils % Lymphocytes % 5.4 L Lymphocytes % (Manual) Monocytes % 6.6 Monocytes % (Manual) Eosinophils % 0.3 Eosinophils % (Manual) Basophils % 0.3 Basophils % (Manual) Myelocytes % (Man) Promyelocytes % (Man) Blast Cells % (Manual) Nucleated RBC % 0 Metamyelocytes Hypochromia Platelet Estimate Poikilocytosis Anisocytosis Microcytosis Macrocytosis PT with INR INR Sodium 136 Potassium 3.6 Chloride 101 Carbon Dioxide 26 Anion Gap 9 BUN 13.5 Creatinine 0.7 Est GFR (CKD-EPI)AfAm 138.75 Est GFR (CKD-EPI)NonAf 119.71 POC Glucometer Random Glucose 61 L Lactic Acid 1.2 Calcium 8.4 L Phosphorus Magnesium 1.9 Total Bilirubin 1.8 H AST 11 L ALT 18 Alkaline Phosphatase 65 Total Protein 6.2 L Albumin 2.5 L Total Amylase 102 Lipase 252 Urine Color Urine Appearance Urine pH Ur Specific [place] Urine Protein Urine Glucose (UA) Urine Ketones Urine Blood Urine Nitrite Urine Bilirubin Urine Urobilinogen Ur Leukocyte Esterase 06/20/19 10:48 WBC RBC Hgb Hct MCV MCH MCHC RDW Plt Count MPV Absolute Neuts (auto) Neutrophils % Neutrophils % (Manual) Band Neutrophils % Lymphocytes % Lymphocytes % (Manual) Monocytes % Monocytes % (Manual) Eosinophils % Eosinophils % (Manual) Basophils % Basophils % (Manual) Myelocytes % (Man) Promyelocytes % (Man) Blast Cells % (Manual) Nucleated RBC % Metamyelocytes Hypochromia Platelet Estimate Poikilocytosis Anisocytosis Microcytosis Macrocytosis PT with INR INR Sodium Potassium Chloride Carbon Dioxide Anion Gap BUN Creatinine Est GFR (CKD-EPI)AfAm Est GFR (CKD-EPI)NonAf POC Glucometer 84 Random Glucose Lactic Acid Calcium Phosphorus Magnesium Total Bilirubin AST ALT Alkaline Phosphatase Total Protein Albumin Total Amylase Lipase Urine Color Urine Appearance Urine pH Ur Specific [place] Urine Protein Urine Glucose (UA) Urine Ketones Urine Blood Urine Nitrite Urine Bilirubin Urine Urobilinogen Ur Leukocyte Esterase Active Medications Generic Name Dose Route Start Last Admin Trade Name Freq PRN Reason Stop Dose Admin Acetaminophen 1,000 mg 06/19/19 10:34 06/20/19 05:26 Ofirmev Injection - IVPB 1,000 mg Q6H PRN Administration PAIN LEVEL 6-10 Heparin Sodium (Porcine) 5,000 unit 06/18/19 22:00 06/20/19 09:54 Heparin - SQ 5,000 unit BID [facility] Administration Sodium Chloride 1,000 mls @ 250 mls/hr 06/18/19 17:30 06/20/19 11:16 Normal Saline - IV 250 mls/hr ASDIR [facility] Administration Morphine Sulfate 4 mg 06/19/19 18:33 06/20/19 03:04 Morphine Sulfate IVPUSH 4 mg Q4H PRN Administration PAIN LEVEL 7 - 10 Ondansetron HCl 4 mg 06/18/19 17:05 06/19/19 16:59 Zofran Injection IVPUSH 4 mg Q6H PRN Administration NAUSEA AND/OR VOMITING Pantoprazole Sodium 40 mg 06/20/19 10:00 06/20/19 09:54 Protonix Iv IVPUSH 40 mg DAILY ESTEE Administration ASSESSMENT/PLAN: Problem List - Problems (1) Severe sepsis Code(s): A41.9 - SEPSIS, UNSPECIFIED ORGANISM; R65.20 - SEVERE SEPSIS WITHOUT SEPTIC SHOCK (2) HTN (hypertension) Code(s): I10 - ESSENTIAL (PRIMARY) HYPERTENSION (3) Morbid obesity with BMI of 50.0-59.9, adult Code(s): E66.01 - MORBID (SEVERE) OBESITY DUE TO EXCESS CALORIES; Z68.43 - BODY MASS INDEX (BMI) 50.0-59.9, ADULT (4) Pancreatitis Code(s): K85.90 - ACUTE PANCREATITIS WITHOUT NECROSIS OR INFECTION, UNSP Qualifiers: Chronicity: acute Pancreatitis type: unspecified pancreatitis type Acute pancreatitis complication: unspecified Qualified Code(s): K85.90 - Acute pancreatitis without necrosis or infection, unspecified Visit type - Emergency Visit Emergency Visit: Yes ED Registration Date: 06/18/19 Care time: The patient presented to the Emergency Department on the above date and was hospitalized for further evaluation of their emergent condition. - New Patient This patient is new to me today: Yes Date on this admission: 06/20/19 - Critical Care Critical Care patient: No - Discharge Referral Referred to [facility] Med [facility].C.: No
--- NOTE | 2019-06-20 12:14 | CON.ID ---
Consult Consult Specialty:: infectious diseases Referred by:: Lavonne Reason for Consultation:: leukocytosis,fever - History of Present Illness Chief Complaint: abd pain History of Present Illness: 39 yo morbidly obese male, chronic back pain, takes marijuana "pill" as needed for his back pain prescribed by his PMD as per pt, here w/ severe upper abd pain w/ nausea since yesterday. No vomiting, mild nausea Was seen earlier this year for same and given Pepcid and Maalox which did had no effect now. patient is head school custodian and says pain started suddenly couple of days back patient then came to the hospital was worked up and found to ahve pancreatitis also patients wbc have started increasing. currently he still has abd pain but says he is feeling better,says he had fever yesterday patient is morbidly obese - History Source History Provided By: Patient Limitations to Obtaining History: No Limitations - Past Medical History Cardio/Vascular: Yes: HTN, Hyperlipdemia - Alcohol/Substance Use Hx Alcohol Use: Yes - Smoking History Smoking history: Never smoked Have you smoked in the past 12 months: Yes Aproximately how many cigarettes per day: 4 If you are a former smoker, when did you quit?: 2015 Home Medications - Allergies Allergies/Adverse Reactions: Allergies Allergy/AdvReac Type Severity Reaction Status Date / Time Penicillins Allergy Intermediate "hives-pimp Verified 06/18/19 12:59 les" Review of Systems - Review of Systems Constitutional: reports: Fever, Other Eyes: reports: No Symptoms HENT: reports: No Symptoms Neck: reports: No Symptoms Cardiovascular: reports: No Symptoms Respiratory: reports: No Symptoms Gastrointestinal: reports: Abdominal Pain Genitourinary: reports: No Symptoms Musculoskeletal: reports: No Symptoms Integumentary: reports: No Symptoms Neurological: reports: No Symptoms Endocrine: reports: No Symptoms Hematology/Lymphatic: reports: No Symptoms Psychiatric: reports: No Symptoms Physical Exam Vital Signs: Vital Signs Temperature 99.7 F H 06/20/19 08:52 Pulse Rate 112 H 06/20/19 08:52 Respiratory Rate 20 06/20/19 08:52 Blood Pressure 127/88 06/20/19 08:52 O2 Sat by Pulse Oximetry (%) 95 06/19/19 20:51 Constitutional: Yes: Well Nourished, Mild Distress, Obese (morbid) HENT: Yes: Atraumatic, Normocephalic Cardiovascular: Yes: Regular Rate and Rhythm Respiratory: Yes: Regular, CTA Bilaterally Gastrointestinal: Yes: Hypoactive Bowel Sounds, Other Musculoskeletal: Yes: WNL Extremities: Yes: WNL Neurological: Yes: Alert, Oriented Psychiatric: Yes: Alert, Oriented Labs: CBC, BMP 06/20/19 08:30 06/20/19 06:00 Imaging - Results Chest X-ray: Report Reviewed, Image Reviewed Ultrasound: Report Reviewed, Image Reviewed Assessment/Plan this morbidly obese patient coming in wiht pancreatitis denies etoh abuse wbc trending upwards patient has also started spiking fevers his lipase has trended down i am worried if the patient might be developing an abscess he ideally needs a ct scan to look at the pancreas--which is not possible because of his obesity i am going to watch him for now--if he continues to spike fever and wbc increases then will initiate abx repeat cbc in the evening
--- NOTE | 2019-06-20 12:28 | CON.PULM ---
Consult Consult Specialty:: PULMONARY Referred by:: MARIE Conrad Reason for Consultation:: r/o pneumonia - History of Present Illness Chief Complaint: abdominal pain History of Present Illness: 39yo male with h/o morbid obesity, chronic back pain, chronic bronchitis who was admitted with abdominal pain and nausea. Lipase elevated suggestive of acute pancreatitis. Had fever to 102.7. CXR difficult study, unable to evaluate the bases. Denies shortness of breath or chest discomfort. +chronic cough unchanged. Did feel sweats with the fevers. He is a former smoker. Takes Advair whenever he has cough. - History Source History Provided By: Patient, Medical Record Limitations to Obtaining History: No Limitations - Past Medical History Cardio/Vascular: Yes: HTN, Hyperlipdemia - Alcohol/Substance Use Hx Alcohol Use: Yes - Smoking History Smoking history: Never smoked Have you smoked in the past 12 months: Yes Aproximately how many cigarettes per day: 4 If you are a former smoker, when did you quit?: 2014 Home Medications - Allergies Allergies/Adverse Reactions: Allergies Allergy/AdvReac Type Severity Reaction Status Date / Time Penicillins Allergy Intermediate "hives-pimp Verified 06/18/19 12:59 les" Review of Systems - Review of Systems Constitutional: reports: Other (sweats). denies: Chills, Fever Eyes: denies: Recent Change in Vision HENT: denies: Nasal Congestion, Throat Pain Neck: denies: Stiffness, Tenderness Cardiovascular: denies: Chest Pain, Edema, Shortness of Breath Respiratory: reports: Cough. denies: Hemoptysis, Wheezing Gastrointestinal: reports: Abdominal Pain, Nausea. denies: Vomiting Genitourinary: denies: Dysuria, Hematuria Neurological: denies: Headache Endocrine: denies: Unexplained Weight Loss Physical Exam Vital Sings: Vital Signs Temperature 99.7 F H 06/20/19 08:52 Pulse Rate 112 H 06/20/19 08:52 Respiratory Rate 20 06/20/19 08:52 Blood Pressure 127/88 06/20/19 08:52 O2 Sat by Pulse Oximetry (%) 95 06/19/19 20:51 Constitutional: Yes: Calm Eyes: Yes: Conjunctiva Clear, EOM Intact HENT: Yes: Atraumatic, Normocephalic Neck: Yes: Supple, Trachea Midline Cardiovascular: Yes: Regular Rate and Rhythm Respiratory: Yes: Diminished (distant breath sounds) ...Clubbing: No Gastrointestinal: Yes: Normal Bowel Sounds, Soft, Abdomen, Obese. No: Tenderness Edema: No Neurological: Yes: Alert, Oriented Labs: CBC, BMP 06/20/19 08:30 06/20/19 06:00 Imaging - Results Chest X-ray: Report Reviewed, Image Reviewed (difficult study, basilar atelectasis) Assessment/Plan Acute Pancreatitis r/o Pneumonia vs Atelectasis Morbid Obesity Chronic Bronchitis - IVF - would monitor off antibiotics - f/u cultures - monitor fever curve, WBC trend - PO as tolerated - DVT prophylaxis Thank you for this consult Fady Flores MD
[2019-06-20 13:38] VITALS: BMI 56.9
[2019-06-20 14:44] LABS: EPI CELLS 0.8 /HPF (0-5/HPF); HYALINE CASTS 3 /lpf (0-8); URINE APPEARANCE CLEAR; URINE BACTERIA 1.7 /hpf (NEGATIVE); URINE BILIRUBIN 2+ (NEGATIVE); URINE COLOR DK YELLOW; URINE GLUCOSE (UA) NEGATIVE (NEGATIVE); URINE KETONE 3+ (NEGATIVE); URINE LEUK ESTERASE NEGATIVE (NEGATIVE); URINE NITRITE NEGATIVE (NEGATIVE); URINE PROTEIN 1+ (NEGATIVE); URINE RBC 2 /hpf (0-4); URINE WBC 1 /hpf (0-5)
[2019-06-20] MEDS ORDERED: SODIUM CHLORIDE 1,000 ML IV SCH ×2 (14:47→15:40)
--- NOTE | 2019-06-20 15:31 | PN.GI ---
GI Progress Note Subjective: Abdominal pain improved wants to eat - Objective Vital Signs: Vital Signs Temperature 99.7 F H 06/20/19 08:52 Pulse Rate 112 H 06/20/19 08:52 Respiratory Rate 20 06/20/19 08:52 Blood Pressure 127/88 06/20/19 08:52 O2 Sat by Pulse Oximetry (%) 95 06/19/19 20:51 Constitutional: Calm Eyes: No: Sclera Icterus Cardiovascular: Yes: Tachycardia Respiratory: Yes: Diminished (at bases, poor insp effort) Gastrointestinal Inspection: Yes: Other (Exam limited due to body habitus). No : Distention ...Auscultate: Yes: Normoactive Bowel Sounds ...Palpate: Yes: Soft, Tenderness (Minimal TTP mid abdomen) ...Percussion: No: Tympanitic Edema: Yes Neurological: Yes: Alert Labs: CBC, BMP 06/20/19 08:30 06/20/19 06:00 INR, PTT INR 1.20 (0.83-1.09) H 06/19/19 11:28 Problem List - Problems (1) Pancreatitis Assessment/Plan: Limited evaluation given body habitus. Appears to be clinically improving, however with rising WBC and continued fevers If continued trend, would advise transfer to tertiary care center where further imaging (of chest and abdomen) can be obtained and other interventions performed if necessary as his body habitus makes him a higher risk patient. Advance to clears for now. IV hydration Code(s): K85.90 - ACUTE PANCREATITIS WITHOUT NECROSIS OR INFECTION, UNSP Qualifiers: Chronicity: acute Pancreatitis type: unspecified pancreatitis type Acute pancreatitis complication: unspecified Qualified Code(s): K85.90 - Acute pancreatitis without necrosis or infection, unspecified
[2019-06-20 17:10] LABS: BASO % 0.3 % (0-2.0); EOS % 0.2 % (0-4.5); HEMATOCRIT 36.6 % (35.4-49); HEMOGLOBIN 11.7 GM/dL (11.7-16.9); LYMPH % 3.7 % (8-40); MCH 26.8 pg (25.7-33.7); MEAN CELL VOLUME 83.9 fl (80-96); MONO % 6.2 % (3.8-10.2); NEUT % 89.6 % (42.8-82.8); PLATELET COUNT 229 K/MM3 (134-434); RBC 4.36 M/mm3 (4.00-5.60); RDW 15.6 % (11.9-15.9); WHITE BLOOD COUNT 20.8 K/mm3 (4.0-10.0)
[2019-06-20 17:34] LABS: PLATELET ESTIMATE ADEQUATE
--- NOTE | 2019-06-20 18:40 | DS ---
Physical Exam: SUBJECTIVE: Patient seen and examined, denies abdominal pain, nausea or vomiting. patient agrees to transfer to [facility] for severe sepsis of unknown origin and our inablity to image his abdomen/chest secondary to weight of >450 lbs. OBJECTIVE: wbc 20 with tachycardia and fevers. patient denies any malaise wbc high with left lower lobe hazyness ?aspiration on chest xray lungs sound clear, right base diminished Patient with fevers and elevated wbc of unknown origin, can have a developing abscess vs pneumonia. can also have other acute abdominal pathology, but since he weights 459 lbs, he exceeds the weight limit of the CT scan/MRI, unable to identify source of fevers. He has been pancultured. Spoke to project assistant and patient is not a candidate for imaging at [facility] if weighs above 450 lbs. called [facility] and expressed my concern of this young patient developing severe sepsis without a clear source. Spoke to Dr. Floyd Mahajan at [facility] who accepted patient for transfer and confirmed that patient can be imaged there. Dr. Mahajan made aware that patient has a pending CBC at [facility], and if elevated, will initiate patient on meropenum (allergy to pcn). I spoke to Dr. Treviño (ID) who states that meropenem is appropriate. All transfer forms filled out, patient agrees to transfer. reason for transfer: unable to image patient to evaluate cause of his elevated wbc (now increased to 20) with fevers (102f), and tachycardia (severe sepsis of unknown origin). 39 yo morbidly obese male, chronic back pain, takes marijuana "pill" as needed for his back pain prescribed by his PMD as per pt, here w/ severe upper abd pain w/ nausea since admission. No vomiting, mild nausea Was seen earlier this year for same and given Pepcid and Maalox. No history of gallstones and none seen on US 09/2017. Presents with abdominal pain and elevated lipase in the 8000. Lipase trended down to normal and started on clear liquid diet. WBC continued to trend upwards since admission 15>20 with fevers of 102 and tachycardia. Unclear source of sepsis, was pancultured. However, since we cannot offer imaging here at [facility] to look for source of fever, he will be transferred to [facility] for further workup (accepted by Dr. Floyd Mahajan). Per Dr. Treviño (ID), patient may be developing an abdominal abscess vs other source for fever. Repeat CBC today and if remains elevated, start on meropenem. Vital Signs Period Temp Pulse Resp BP Sys/Mosher Pulse Ox Last 24 Hr 98.6 F-102.7 F 112-127 20-21 109-128/75-89 95 PHYSICAL EXAM GENERAL: The patient is awake, alert, and fully oriented, in no acute distress. HEAD: Normal with no signs of trauma. EYES: PERRL, extraocular movements intact, sclera anicteric, conjunctiva clear. ENT: Ears normal, nares patent, oropharynx clear without exudates, moist mucous membranes. NECK: Trachea midline, full range of motion, supple. LUNGS: diminished at the right base, clear otherwise. on room air. HEART: regular with tachycardia, no chest pain ABDOMEN: Soft obese, nontender, nondistended, normoactive bowel sounds, no guarding, no rebound, no hepatosplenomegaly, no masses. EXTREMITIES: 2+ pulses, warm, well-perfused, no edema. NEUROLOGICAL: Normal speech, gait not observed. PSYCH: Normal mood, normal affect. SKIN: Warm, dry, normal turgor, no rashes or lesions noted. LABS Laboratory Results - last 24 hr 06/19/19 06/20/19 06/20/19 22:29 05:24 06:00 WBC RBC Hgb Hct MCV MCH MCHC RDW Plt Count MPV Absolute Neuts (auto) Neutrophils % Neutrophils % (Manual) Band Neutrophils % Lymphocytes % Lymphocytes % (Manual) Monocytes % Monocytes % (Manual) Eosinophils % Eosinophils % (Manual) Basophils % Basophils % (Manual) Myelocytes % (Man) Nucleated RBC % Platelet Estimate Sodium 136 Potassium 3.6 Chloride 101 Carbon Dioxide 26 Anion Gap 9 BUN 13.5 Creatinine 0.7 Est GFR (CKD-EPI)AfAm 138.75 Est GFR (CKD-EPI)NonAf 119.71 POC Glucometer 81 71 Random Glucose 61 L Lactic Acid Calcium 8.4 L Magnesium 1.9 Total Bilirubin 1.8 H AST 11 L ALT 18 Alkaline Phosphatase 65 Total Protein 6.2 L Albumin 2.5 L Total Amylase 102 Lipase 252 Urine Color Urine Appearance Urine pH Ur Specific Sutton Urine Protein Urine Glucose (UA) Urine Ketones Urine Blood Urine Nitrite Urine Bilirubin Urine Urobilinogen Ur Leukocyte Esterase Urine WBC (Auto) Urine RBC (Auto) Urine Casts (Auto) U Epithel Cells (Auto) Urine Bacteria (Auto) 06/20/19 06/20/19 06/20/19 08:28 08:30 10:48 WBC 18.9 H RBC 4.43 Hgb 11.9 Hct 36.9 MCV 83.1 MCH 26.8 MCHC 32.2 RDW 15.8 Plt Count 218 MPV 8.8 Absolute Neuts (auto) 16.5 H Neutrophils % 87.4 H Neutrophils % (Manual) Band Neutrophils % Lymphocytes % 5.4 L Lymphocytes % (Manual) Monocytes % 6.6 Monocytes % (Manual) Eosinophils % 0.3 Eosinophils % (Manual) Basophils % 0.3 Basophils % (Manual) Myelocytes % (Man) Nucleated RBC % 0 Platelet Estimate Sodium Potassium Chloride Carbon Dioxide Anion Gap BUN Creatinine Est GFR (CKD-EPI)AfAm Est GFR (CKD-EPI)NonAf POC Glucometer 84 Random Glucose Lactic Acid 1.2 Calcium Magnesium Total Bilirubin AST ALT Alkaline Phosphatase Total Protein Albumin Total Amylase Lipase Urine Color Urine Appearance Urine pH Ur Specific Sutton Urine Protein Urine Glucose (UA) Urine Ketones Urine Blood Urine Nitrite Urine Bilirubin Urine Urobilinogen Ur Leukocyte Esterase Urine WBC (Auto) Urine RBC (Auto) Urine Casts (Auto) U Epithel Cells (Auto) Urine Bacteria (Auto) 06/20/19 06/20/19 06/20/19 14:00 14:43 16:10 WBC 20.8 H RBC 4.36 Hgb 11.7 Hct 36.6 MCV 83.9 MCH 26.8 MCHC 32.0 RDW 15.6 Plt Count 229 MPV 9.0 Absolute Neuts (auto) 18.6 H Neutrophils % 89.6 H Neutrophils % (Manual) 88.0 H Band Neutrophils % 1.0 Lymphocytes % 3.7 L D Lymphocytes % (Manual) 5.0 L D Monocytes % 6.2 Monocytes % (Manual) 2 L D Eosinophils % 0.2 Eosinophils % (Manual) 0.0 Basophils % 0.3 Basophils % (Manual) 0.0 Myelocytes % (Man) 1 D Nucleated RBC % 0 Platelet Estimate Adequate Sodium Potassium Chloride Carbon Dioxide Anion Gap BUN Creatinine Est GFR (CKD-EPI)AfAm Est GFR (CKD-EPI)NonAf POC Glucometer 92 Random Glucose Lactic Acid Calcium Magnesium Total Bilirubin AST ALT Alkaline Phosphatase Total Protein Albumin Total Amylase Lipase Urine Color Dk yellow Urine Appearance Clear Urine pH 5.0 D Ur Specific Sutton 1.025 Urine Protein 1+ H Urine Glucose (UA) Negative Urine Ketones 3+ H Urine Blood 2+ H Urine Nitrite Negative Urine Bilirubin 2+ H Urine Urobilinogen 1.0 Ur Leukocyte Esterase Negative Urine WBC (Auto) 1 Urine RBC (Auto) 2 Urine Casts (Auto) 3 U Epithel Cells (Auto) 0.8 Urine Bacteria (Auto) 1.7 HOSPITAL COURSE: Date of Admission:06/18/19 Date of Discharge: 06/20/19 TRANSFER TO [facility] FOR FEVERS/SEVERE SEPSIS. WE ARE UNABLE TO IMAGE PATIENT SECONDARY TO WEIGHT OF 460LBS AND OUR CT SCAN ONLY ALLOWS PATIENTS LESS THAN 450LBS. PATIENT MAY BE DEVELOPING AN ABDOMINAL ABSCES? VS OTHER ABDOMINAL PATHOLOGY FOR FEVERS AND WE ARE UNABLE TO OFFER FURTHER IMAGING. Minutes to complete discharge: 60 Discharge Summary Problems reviewed: Yes Reason For Visit: PANCREATITIS Current Active Problems Epigastric pain (Acute) HTN (hypertension) (Acute) Morbid obesity with BMI of 50.0-59.9, adult (Acute) Nausea and vomiting (Acute) Pancreatitis (Acute) Prophylactic measure (Acute) Condition: Fair - Instructions Diet, Activity, Other Instructions: TRANSFER TO [facility] PATIENT UNABLE TO HAVE ANY IMAGING DONE HERE AND NEEDS STAT CT/MRI SECONDARY TO ELEVATED WBC/FEVERS ACCEPTED TO [facility] DR FLOYD CARDOZA ACCEPTING Referrals: Ana Laura Bonilla MD [Primary Care Provider] - Disposition: TRANSFER ACUTE CARE/OTHER HOSP This patient is new to me today: Yes Date on this admission: 06/20/19 Emergency Visit: Yes ED Registration Date: 06/18/19 Care time: The patient presented to the Emergency Department on the above date and was hospitalized for further evaluation of their emergent condition. Critical Care patient: No - Discharge Referral Referred to [facility] Med P.C[facility] No
[2019-06-20] MEDS ORDERED: MEROPENEM 1 GM in DEXTROSE 5%-WATER 100 ML IVPB ONE (18:45)
[2019-06-20] MEDS ORDERED: MEROPENEM 1 GM VIAL (RESTRICTED TO ID) IVPB ONE (18:59)
[2019-06-20] MEDS ORDERED: DEXTROSE 5%-WATER 100 ML IVPB ONE (19:00)
[2019-06-21 00:47] VITALS: BP 133/86; PULSE 124; TEMP 98.3
== END 2019-06-20 21:30 | disposition short-term general hospital (02) | DRG 871 ==
LOC: JER 12:55 → JERBED 16:25 → J5S 18:43
PROVIDERS: ATTEND Nurse Practitioner Family
DX: A41.89 Other specified sepsis (principal); K85.90 Acute pancreatitis without necrosis or infection, unspecified; Z68.43 Body mass index [BMI] 50.0-59.9, adult; J98.11 Atelectasis; R11.2 Nausea with vomiting, unspecified; R65.20 Severe sepsis without septic shock; E66.01 Morbid (severe) obesity due to excess calories; I10 Essential (primary) hypertension; E78.5 Hyperlipidemia, unspecified; R10.13 Epigastric pain; D72.829 Elevated white blood cell count, unspecified; M54.9 Dorsalgia, unspecified; J42 Unspecified chronic bronchitis; R00.0 Tachycardia, unspecified
CPT/HCPCS: 36415; 71045-TC-FY; 76705-TC; 80053; 81003; 82150; 82787; 82962; 83605; 83690; 83735; 84100; 84478; 85025; 85610; 87040; 87086; 93005; 93010; 99284-25; J0131; J1644; J7030

== ENCOUNTER 2020-12-08 17:51 | Emergency (ER) | payer BC ==
[2020-12-08 18:01] VITALS: BP 135/100; PULSE 85; BMI 55.6
[2020-12-08 18:04] VITALS: TEMP 97.9
== END 2020-12-08 18:40 | disposition left against medical advice (07) ==
LOC: JER 17:51
DX: R10.13 Epigastric pain (principal)
CPT/HCPCS: 99281-25

== ENCOUNTER 2021-05-28 17:42 | Emergency (ER) | payer BC ==
[2021-05-28 18:29] VITALS: BP 147/82; PULSE 87; TEMP 97.9; BMI 56.8
[2021-05-28 21:17] LABS: BASO % 0.3 % (0-2.0); EOS % 0.6 % (0-4.5); HEMATOCRIT 40.8 % (35.4-49); HEMOGLOBIN 13.6 GM/dL (11.7-16.9); LYMPH % 17.3 % (8-40); MCH 27.7 pg (25.7-33.7); MCHC 33.4 g/dl (32.0-35.9); MEAN CELL VOLUME 82.7 fl (80-96); MEAN PLT VOLUME 8.4 fl (7.5-11.1); MONO % 3.9 % (3.8-10.2); NEUT % 77.9 % (42.8-82.8); PLATELET COUNT 225 10^3/uL (134-434); RBC 4.93 M/mm3 (4.00-5.60); WHITE BLOOD COUNT 11.1 K/mm3 (4.0-10.0)
[2021-05-28 21:21] LABS: CHLORIDE 102 mmol/L (98-107); SODIUM 139 mmol/L (136-145)
[2021-05-28 21:23] LABS: CALCIUM 9.3 mg/dL (8.5-10.1)
[2021-05-28 21:24] LABS: ALBUMIN 3.4 g/dl (3.4-5.0); ANION GAP 7 MMOL/L (8-16); BLOOD UREA NITROGEN 19.2 mg/dL (7-18); CO2 30 mmol/L (21-32); GLUCOSE,RANDOM 100 mg/dL (74-106); INR 1.02 (0.83-1.09); LIPASE 35 U/L (73-393); PROTHROMBIN TIME (PATIENT) 11.4 SEC (9.7-13.0)
[2021-05-28 21:27] LABS: CREATININE 0.6 mg/dL (0.55-1.3); SGOT/AST 29 U/L (15-37); SGPT/ALT 30 U/L (13-61)
[2021-05-28 21:28] LABS: BILIRUBIN,TOTAL 0.6 mg/dL (0.2-1)
[2021-05-28 21:29] LABS: ALK PHOS 109 U/L (45-117)
[2021-05-28] MEDS ORDERED: ACETAMINOPHEN 1000 MG/100 ML VIAL IVPB ONE (23:18)
[2021-05-28] MEDS ORDERED: ONDANSETRON 4 MG/2 ML VIAL IVPUSH ONE (23:18)
[2021-05-28] MEDS ORDERED: MAG HYDROX/AL HYDROX/SIMETH 30 ML UNIT-DOSE CUP PO ONE (23:19)
[2021-05-28] MEDS ORDERED: FAMOTIDINE 20 MG/50 ML IVPB 20 MG/50 ML MG IVPB ONE ×2 (23:19→23:55)
[2021-05-28] MEDS ORDERED: MAG HYDROX/AL HYDROX/SIMETH 30 ML UNIT-DOSE CUP ONE (23:54)
[2021-05-28] MEDS ORDERED: ONDANSETRON 4 MG/2 ML VIAL ONE (23:54)
[2021-05-28] MEDS ORDERED: ACETAMINOPHEN INJECTION 100 ML IVPB ONE (23:54)
== END 2021-05-29 00:43 | disposition home or self-care (01) ==
LOC: JER 17:42
PROC: 3E033NZ Introduction of Analgesics, Hypnotics, Sedatives into Peripheral Vein, Percutaneous Approach (ICD-10-PCS; principal; 2021-05-28)
PROC: 3E033GC Introduction of Other Therapeutic Substance into Peripheral Vein, Percutaneous Approach (ICD-10-PCS; 2021-05-28)
PROC: 3E033GC Introduction of Other Therapeutic Substance into Peripheral Vein, Percutaneous Approach (ICD-10-PCS; 2021-05-28)
DX: R10.10 Upper abdominal pain, unspecified (principal)
CPT/HCPCS: 36415; 71046-TC-FY; 76705-TC; 80053; 82550; 82962; 83690; 84484; 85025; 85610; 85730; 86850; 86900; 86901; 93005; 93010; 99284-25; J0131

== ENCOUNTER 2021-06-15 09:18 | Emergency (ER) | payer BC ==
[2021-06-15 09:24] VITALS: TEMP 97.9; BMI 56.2
[2021-06-15] MEDS ORDERED: ACETAMINOPHEN 1000 MG/100 ML VIAL IVPB ONE (10:20)
[2021-06-15] MEDS ORDERED: METOCLOPRAMIDE HCL INJECTION 10 MG/2 ML VIAL IVPB ONE (10:20)
[2021-06-15] MEDS ORDERED: FAMOTIDINE 20 MG/50 ML IVPB 20 MG/50 ML MG IVPB ONE ×2 (10:20→10:52)
[2021-06-15] MEDS ORDERED: METOCLOPRAMIDE HCL INJECTION 10 MG/2 ML VIAL ONE (10:52)
[2021-06-15] MEDS ORDERED: ACETAMINOPHEN INJECTION 100 ML IVPB ONE (10:52)
[2021-06-15 11:26] LABS: BASO % 0.3 % (0-2.0); EOS % 0.5 % (0-4.5); HEMATOCRIT 40.5 % (35.4-49); HEMOGLOBIN 13.2 GM/dL (11.7-16.9); LYMPH % 11.6 % (8-40); MCH 27.9 pg (25.7-33.7); MCHC 32.6 g/dl (32.0-35.9); MEAN CELL VOLUME 85.5 fl (80-96); MONO % 5.5 % (3.8-10.2); NEUT % 82.1 % (42.8-82.8); PLATELET COUNT 206 10^3/uL (134-434); RBC 4.73 M/mm3 (4.00-5.60); RDW 14.1 % (11.9-15.9); WHITE BLOOD COUNT 11.1 K/mm3 (4.0-10.0)
[2021-06-15] MEDS ORDERED: SODIUM CHLORIDE 1,000 ML IV STA (11:39)
[2021-06-15] MEDS ORDERED: DICYCLOMINE HCL 20 MG TABLET PO ONE (11:47)
[2021-06-15] MEDS ORDERED: DICYCLOMINE HCL 10 MG CAPSULE ONE (11:51)
[2021-06-15 11:56] LABS: ALBUMIN 3.2 g/dl (3.4-5.0); BLOOD UREA NITROGEN 19.5 mg/dL (7-18)
[2021-06-15 11:59] LABS: CREATININE 0.7 mg/dL (0.55-1.3)
[2021-06-15 12:01] LABS: BILIRUBIN,TOTAL 0.6 mg/dL (0.2-1); TOT PROT 7.5 g/dl (6.4-8.2)
[2021-06-15 15:03] VITALS: BP 133/76; PULSE 82
== END 2021-06-15 15:03 | disposition home or self-care (01) ==
LOC: JER 09:18
PROC: 3E033NZ Introduction of Analgesics, Hypnotics, Sedatives into Peripheral Vein, Percutaneous Approach (ICD-10-PCS; principal; 2021-06-15)
PROC: 3E033GC Introduction of Other Therapeutic Substance into Peripheral Vein, Percutaneous Approach (ICD-10-PCS; 2021-06-15)
PROC: 3E033GC Introduction of Other Therapeutic Substance into Peripheral Vein, Percutaneous Approach (ICD-10-PCS; 2021-06-15)
PROC: 3E0337Z Introduction of Electrolytic and Water Balance Substance into Peripheral Vein, Percutaneous Approach (ICD-10-PCS; 2021-06-15)
DX: R10.13 Epigastric pain (principal); R19.7 Diarrhea, unspecified
CPT/HCPCS: 36415; 76705-TC; 80053; 83690; 85025; 99285-25; J0131

== ENCOUNTER 2021-11-17 02:01 | Inpatient (IN) | payer BC ==
[2021-11-17] MEDS ORDERED: morphine SULFATE 4 MG/ML VIAL IVPUSH ONE ×2 (03:49→05:35)
[2021-11-17] MEDS ORDERED: ONDANSETRON 4 MG/2 ML VIAL IVPUSH ONE (03:49)
[2021-11-17] MEDS ORDERED: FAMOTIDINE 20 MG TABLET PO ONE (03:49)
[2021-11-17] MEDS ORDERED: KETOROLAC TROMETHAMINE 30 MG/1 ML VIAL IM ONE (03:55)
[2021-11-17] MEDS ORDERED: LACTATED RINGERS SOLUTION 1,000 ML/1,000 ML INFUS.BAG IV SCH ×2 (04:15→05:45)
[2021-11-17] MEDS ORDERED: KETOROLAC TROMETHAMINE 30 MG/1 ML VIAL ONE (04:17)
[2021-11-17] MEDS ORDERED: FAMOTIDINE 20 MG/50 ML IVPB 20 MG/50 ML MG IVPB ONE (04:36)
[2021-11-17] MEDS ORDERED: FAMOTIDINE 10 MG/ML VIAL IVPB ONE ×2 (04:38→04:41)
[2021-11-17] MEDS ORDERED: ONDANSETRON 4 MG/2 ML VIAL ONE (04:38)
[2021-11-17 05:02] LABS: BASO % 0.5 % (0-2.0); EOS % 0.1 % (0-4.5); HEMOGLOBIN 11.5 GM/dL (11.7-16.9); LYMPH % 5.9 % (8-40); MCH 25.3 pg (25.7-33.7); MCHC 30.2 g/dl (32.0-35.9); MEAN CELL VOLUME 84.1 fl (80-96); MEAN PLT VOLUME 9.2 fl (7.5-11.1); MONO % 3.8 % (3.8-10.2); NEUT % 89.7 % (42.8-82.8); PLATELET COUNT 129 10^3/uL (134-434); RBC 4.52 M/mm3 (4.00-5.60); RDW 14.3 % (11.9-15.9); WHITE BLOOD COUNT 12.2 K/mm3 (4.0-10.0)
[2021-11-17 05:17] LABS: CALCIUM 8.7 mg/dL (8.5-10.1)
[2021-11-17 05:18] LABS: ALBUMIN 3.4 g/dl (3.4-5.0); BLOOD UREA NITROGEN 19.4 mg/dL (7-18)
[2021-11-17 05:20] LABS: CREATININE 0.8 mg/dL (0.55-1.3)
[2021-11-17 05:22] LABS: BILIRUBIN,TOTAL 0.7 mg/dL (0.2-1); TOT PROT 7.2 g/dl (6.4-8.2)
[2021-11-17] MEDS ORDERED: morphine SULFATE 4 MG/ML VIAL ONE (05:41)
[2021-11-17] MEDS ORDERED: ACETAMINOPHEN 1000 MG/100 ML BAG IVPB PRN (07:13)
[2021-11-17] MEDS ORDERED: FAMOTIDINE 20 MG TABLET ONE (08:52)
[2021-11-17] MEDS ORDERED: morphine SULFATE 4 MG/ML VIAL SQ PRN (09:02)
[2021-11-17] MEDS ORDERED: morphine SULFATE 4 MG/ML VIAL IVPUSH PRN (09:15)
[2021-11-17] MEDS ORDERED: FAMOTIDINE 20 MG TABLET PO SCH (10:00)
[2021-11-17] MEDS: LACTATED RINGERS SOLUTION 1,000 ML/1,000 ML INFUS.BAG IV SCH ×2 (10:06→21:25)
[2021-11-17] MEDS: ONDANSETRON *ODT* 4 MG TABLET SL PRN (11:21)
[2021-11-17] MEDS: ENOXAPARIN NA (PORCINE) 40 MG/0.4 ML DISP.SYRIN SQ SCH ×2 (12:55→21:24)
[2021-11-17 13:44] VITALS: BMI 56.1
[2021-11-17] MEDS ORDERED: LABETALOL HCL 100 MG TABLET (FP) PO ONE (17:02)
[2021-11-17] MEDS ORDERED: LABETALOL HCL 5 MG/1 ML (100MG/20 ML VIAL) IVPB ONE (17:12)
[2021-11-17] MEDS ORDERED: hydrALAZINE HCL 20 MG/ML VIAL IVPB ONE (17:30)
[2021-11-18] MEDS ORDERED: MEROPENEM 1 GM in DEXTROSE 5%-WATER 100 ML IVPB SCH ×3 (02:00→04:00)
[2021-11-18] MEDS ORDERED: MEROPENEM 1 GM VIAL (RESTRICTED TO ID) IVPB ONE (03:15)
[2021-11-18] MEDS ORDERED: DEXTROSE 5%-WATER 100 ML IVPB ONE (03:16)
[2021-11-18] MEDS: ONDANSETRON *ODT* 4 MG TABLET SL PRN (03:24)
[2021-11-18 03:27] VITALS: BP 129/78; PULSE 114; TEMP 102.7
[2021-11-18] MEDS ORDERED: ACETAMINOPHEN 325 MG TABLET (FP) PO ONE (03:44)
== END 2021-11-18 04:00 | disposition short-term general hospital (02) | DRG 439 ==
LOC: JER 02:01 → JERBED 06:28 → J5S 10:54 → UNDODISIN 11-18 04:00
PROVIDERS: ADMIT Hospitalist; ATTEND Hospitalist
DX: K85.90 Acute pancreatitis without necrosis or infection, unspecified (principal); Z68.43 Body mass index [BMI] 50.0-59.9, adult; E66.01 Morbid (severe) obesity due to excess calories; K86.1 Other chronic pancreatitis; D72.829 Elevated white blood cell count, unspecified; D69.6 Thrombocytopenia, unspecified
CPT/HCPCS: 36415; 76700-TC; 80053; 83690; 84478; 85025; 93005; 93010; 99285-25; C9803-CS; Q0162; U0003; U0005

== ENCOUNTER 2022-05-01 15:14 | Emergency (ER) | payer BC ==
[2022-05-01 15:20] VITALS: BP 162/78; PULSE 82; RESP 18; TEMP 97.9; BMI 49.8
[2022-05-01] MEDS ORDERED: IBUPROFEN 600 MG TABLET (FP) PO ONE ×2 (16:50→16:54)
== END 2022-05-01 16:56 | disposition home or self-care (01) ==
LOC: JERFT 15:14
DX: M25.562 Pain in left knee (principal)
CPT/HCPCS: 73562-TC-LT-FY; 99283-25

== ENCOUNTER 2022-06-16 18:47 | Emergency (ER) | payer BC ==
[2022-06-16 19:13] VITALS: BP 130/84; PULSE 92; RESP 20; TEMP 98.3; BMI 53.1
[2022-06-16] MEDS ORDERED: IBUPROFEN 400 MG TABLET (FP) PO ONE ×2 (20:27→20:32)
== END 2022-06-16 22:47 | disposition home or self-care (01) ==
LOC: JERFT 18:47
DX: M25.571 Pain in right ankle and joints of right foot (principal)
CPT/HCPCS: 73610-TC-RT-FY; 73630-TC-RT-FY; 99283-25

== ENCOUNTER 2022-10-19 11:36 | Emergency (ER) | payer BC ==
[2022-10-19 12:03] VITALS: RESP 18; BMI 53.1
[2022-10-19] MEDS ORDERED: FAMOTIDINE 20 MG/50 ML IVPB 20 MG/50 ML MG IVPB ONE ×2 (13:10→13:47)
[2022-10-19] MEDS ORDERED: ONDANSETRON 4 MG/2 ML VIAL IVPUSH ONE (13:10)
[2022-10-19] MEDS ORDERED: ONDANSETRON 4 MG/2 ML VIAL ONE (13:47)
[2022-10-19 13:59] LABS: BASO % 0.5 % (0-2.0); EOS % 1.5 % (0-4.5); HEMATOCRIT 37.2 % (35.4-49); HEMOGLOBIN 12.5 GM/dL (11.7-16.9); LYMPH % 20.9 % (8-40); MCH 27.7 pg (25.7-33.7); MCHC 33.6 g/dl (32.0-35.9); MEAN CELL VOLUME 82.7 fl (80-96); MEAN PLT VOLUME 9.6 fl (7.5-11.1); MONO % 5.7 % (3.8-10.2); NEUT % 71.4 % (42.8-82.8); PLATELET COUNT 153 10^3/uL (134-434); RDW 14.6 % (11.9-15.9); WHITE BLOOD COUNT 7.9 K/mm3 (4.0-10.0)
[2022-10-19 14:09] LABS: ALBUMIN 3.3 g/dl (3.4-5.0); BLOOD UREA NITROGEN 19.5 mg/dL (7-18); CALCIUM 8.7 mg/dL (8.5-10.1)
[2022-10-19 14:12] LABS: CREATININE 0.7 mg/dL (0.55-1.3)
[2022-10-19 14:14] LABS: BILIRUBIN,TOTAL 0.6 mg/dL (0.2-1)
[2022-10-19] MEDS ORDERED: METOCLOPRAMIDE HCL INJECTION 10 MG/2 ML VIAL IVPUSH ONE (14:58)
[2022-10-19] MEDS ORDERED: METOCLOPRAMIDE HCL INJECTION 10 MG/2 ML VIAL ONE (15:01)
[2022-10-19 16:49] LABS: CALCIUM 8.8 mg/dL (8.5-10.1)
[2022-10-19 16:50] LABS: BLOOD UREA NITROGEN 18.6 mg/dL (7-18)
[2022-10-19 16:53] LABS: CREATININE 0.6 mg/dL (0.55-1.3)
[2022-10-19 17:07] VITALS: BP 150/89; PULSE 80; TEMP 98
== END 2022-10-19 17:07 | disposition home or self-care (01) ==
LOC: JER 11:36
PROC: 3E033GC Introduction of Other Therapeutic Substance into Peripheral Vein, Percutaneous Approach (ICD-10-PCS; principal; 2022-10-19)
PROC: 3E033GC Introduction of Other Therapeutic Substance into Peripheral Vein, Percutaneous Approach (ICD-10-PCS; 2022-10-19)
PROC: 3E033GC Introduction of Other Therapeutic Substance into Peripheral Vein, Percutaneous Approach (ICD-10-PCS; 2022-10-19)
DX: R11.0 Nausea (principal); Z87.19 Personal history of other diseases of the digestive system; Z20.822 Contact with and (suspected) exposure to COVID-19
CPT/HCPCS: 0241U-QW; 36415; 80048; 80053; 83690; 85025; 93005; 93010; 99284-25

== ENCOUNTER 2023-02-19 14:56 | Emergency (ER) | payer BC ==
[2023-02-19 15:13] VITALS: BP 136/73; PULSE 82; RESP 20; TEMP 98.2; BMI 55.0
== END 2023-02-19 18:30 | disposition home or self-care (01) ==
LOC: JERFT 14:56 → JER 14:56 → JERFT 18:30
DX: R07.89 Other chest pain (principal); J35.8 Other chronic diseases of tonsils and adenoids; R94.31 Abnormal electrocardiogram [ECG] [EKG]; X50.0XXA Overexertion from strenuous movement or load, initial encounter
CPT/HCPCS: 36415; 71046-TC-FY; 84484; 87070; 87651; 93005; 93010; 99285-25

== ENCOUNTER 2023-06-16 16:05 | Emergency (ER) | payer BC ==
[2023-06-16 16:10] VITALS: BP 137/78; PULSE 54; TEMP 98.2; BMI 53.1
[2023-06-16 16:27] VITALS: RESP 18
[2023-06-16 17:49] LABS: BASO % 0.3 % (0-2.0); EOS % 0.7 % (0-4.5); HEMATOCRIT 39.1 % (35.4-49); HEMOGLOBIN 13.2 GM/dL (11.7-16.9); LYMPH % 15.8 % (8-40); MCH 28.4 pg (25.7-33.7); MCHC 33.8 g/dl (32.0-35.9); MONO % 7.8 % (3.8-10.2); NEUT % 75.4 % (42.8-82.8); PLATELET COUNT 178 10^3/uL (134-434); RBC 4.66 M/mm3 (4.00-5.60); RDW 14.2 % (11.9-15.9); WHITE BLOOD COUNT 9.2 K/mm3 (4.0-10.0)
[2023-06-16] MEDS ORDERED: DALBAVANCIN HCL 1,500 MG in DEXTROSE 5%-WATER - 500 ML IVPB ONE (17:58)
[2023-06-16] MEDS ORDERED: DALBAVANCIN HCL 500 MG VIAL (RESTRICTED TO ID ONLY) IVPB ONE (18:03)
[2023-06-16 18:22] LABS: CALCIUM 8.5 mg/dL (8.5-10.1)
[2023-06-16 18:24] LABS: ALBUMIN 2.9 g/dl (3.4-5.0); BLOOD UREA NITROGEN 18.8 mg/dL (7-18)
[2023-06-16 18:28] LABS: BILIRUBIN,TOTAL 0.4 mg/dL (0.2-1); TOT PROT 6.8 g/dl (6.4-8.2)
== END 2023-06-16 20:58 | disposition home or self-care (01) ==
LOC: JER 16:05
DX: R22.41 Localized swelling, mass and lump, right lower limb (principal); M79.661 Pain in right lower leg; L03.115 Cellulitis of right lower limb; Z20.822 Contact with and (suspected) exposure to COVID-19
CPT/HCPCS: 36415; 73590-TC-RT-FY; 80053; 85025; 87040; 87635; 93971-TC; 99285-25; J0875

== ENCOUNTER 2023-08-14 09:48 | Emergency (ER) | payer BC ==
[2023-08-14 10:19] VITALS: BP 149/87; PULSE 104; RESP 20; TEMP 98.3; BMI 55.0
== END 2023-08-14 11:25 | disposition home or self-care (01) ==
LOC: JER 09:48 → JERFT 09:48
DX: Z48.02 Encounter for removal of sutures (principal); L53.9 Erythematous condition, unspecified
CPT/HCPCS: 99283-25

== ENCOUNTER 2023-10-20 14:38 | Emergency (ER) | payer BC ==
[2023-10-20 14:51] VITALS: BMI 53.7
[2023-10-20] MEDS ORDERED: ACETAMINOPHEN INJECTION 100 ML IVPB ONE (15:46)
[2023-10-20] MEDS: ACETAMINOPHEN 1000 MG/100 ML BAG IVPB ONE (16:13)
[2023-10-20 16:21] LABS: BASO % 1.3 % (0-2.0); EOS % 2.3 % (0-4.5); HEMATOCRIT 34.9 % (35.4-49); HEMOGLOBIN 11.1 GM/dL (11.7-16.9); LYMPH % 24.8 % (8-40); MCH 26.4 pg (25.7-33.7); MCHC 31.9 g/dl (32.0-35.9); MEAN CELL VOLUME 82.8 fl (80-96); MEAN PLT VOLUME 9.2 fl (7.5-11.1); MONO % 6.3 % (3.8-10.2); NEUT % 65.3 % (42.8-82.8); PLATELET COUNT 197 10^3/uL (134-434); RBC 4.22 M/mm3 (4.00-5.60); RDW 14.3 % (11.9-15.9); WHITE BLOOD COUNT 6.7 K/mm3 (4.0-10.0)
[2023-10-20 16:39] LABS: POTASSIUM 4.4 mmol/L (3.5-5.1)
[2023-10-20 16:41] LABS: CALCIUM 8.3 mg/dL (8.5-10.1)
[2023-10-20 16:42] LABS: ALBUMIN 2.8 g/dl (3.4-5.0); BLOOD UREA NITROGEN 18.6 mg/dL (7-18)
[2023-10-20 16:45] LABS: CREATININE 0.7 mg/dL (0.55-1.3)
[2023-10-20 16:46] LABS: BILIRUBIN,TOTAL 0.5 mg/dL (0.2-1); TOT PROT 6.4 g/dl (6.4-8.2)
[2023-10-20] MEDS ORDERED: KETOROLAC TROMETHAMINE 15 MG/ML VIAL ONE (18:40)
[2023-10-20] MEDS ORDERED: LIDOCAINE 4% PATCH TP ONE (18:40)
[2023-10-20] MEDS: LIDOCAINE 5% TOPICAL PATCH TP ONE (18:55)
[2023-10-20] MEDS: KETOROLAC TROMETHAMINE 15 MG/ML VIAL IVPUSH ONE (18:55)
[2023-10-20 19:23] VITALS: BP 159/88; PULSE 87; RESP 18
[2023-10-21] MEDS ORDERED: LIDOCAINE PATCH REMOVAL MC SCH (07:00)
== END 2023-10-20 19:26 | disposition home or self-care (01) ==
LOC: JER 14:38
PROC: 3E033NZ Introduction of Analgesics, Hypnotics, Sedatives into Peripheral Vein, Percutaneous Approach (ICD-10-PCS; principal; 2023-10-20)
PROC: 3E0333Z Introduction of Anti-inflammatory into Peripheral Vein, Percutaneous Approach (ICD-10-PCS; 2023-10-20)
DX: R07.89 Other chest pain (principal); R93.89 Abnormal findings on diagnostic imaging of other specified body structures
CPT/HCPCS: 36415; 71045-TC-FY; 80053; 84484; 85025; 93005; 93010; 99285-25; J0131

== ENCOUNTER 2023-11-25 15:04 | Emergency (ER) | payer BC ==
[2023-11-25 15:13] VITALS: BP 147/75; PULSE 50; RESP 18; TEMP 98.8; BMI 62.4
== END 2023-11-25 16:15 | disposition home or self-care (01) ==
LOC: JERFT 15:04 → JER 15:04 → JERFT 16:15
PROC: 0HQLXZZ Repair Left Lower Leg Skin, External Approach (ICD-10-PCS; principal; 2023-11-25)
DX: S81.812A Laceration without foreign body, left lower leg, initial encounter (principal); W22.8XXA Striking against or struck by other objects, initial encounter
CPT/HCPCS: 99282-25

== ENCOUNTER 2024-03-22 13:31 | Emergency (ER) | payer BC ==
[2024-03-22 13:41] VITALS: BP 120/86; PULSE 87; RESP 18; TEMP 98.3; BMI 57.4
[2024-03-22] MEDS ORDERED: ONDANSETRON 4 MG/2 ML VIAL ONE (14:16)
[2024-03-22] MEDS ORDERED: MAG HYDROX/AL HYDROX/SIMETH 30 ML UNIT-DOSE CUP ONE (14:16)
[2024-03-22] MEDS ORDERED: FAMOTIDINE 20 MG/50 ML IVPB 20 MG/50 ML MG IVPB ONE (14:16)
[2024-03-22] MEDS: LACTATED RINGERS SOLUTION 1000 ML INFUS.BAG IV ONE (14:43)
[2024-03-22] MEDS: MAG HYDROX/AL HYDROX/SIMETH -MYLANTA- ORAL SUSPENSION PO ONE (14:43)
[2024-03-22] MEDS: FAMOTIDINE 20 MG/50 ML IVPB 20 MG/50 ML MG IVPB ONE (14:43)
[2024-03-22] MEDS: ONDANSETRON 4 MG/2 ML VIAL IVPUSH ONE (14:43)
[2024-03-22 14:52] LABS: BASO % 0.8 % (0-2.0); EOS % 1.9 % (0-4.5); HEMATOCRIT 38.4 % (35.4-49); HEMOGLOBIN 12.5 GM/dL (11.7-16.9); LYMPH % 26.1 % (8-40); MCH 26.4 pg (25.7-33.7); MCHC 32.6 g/dl (32.0-35.9); MEAN PLT VOLUME 8.9 fl (7.5-11.1); MONO % 6.9 % (3.8-10.2); NEUT % 64.3 % (42.8-82.8); PLATELET COUNT 194 10^3/uL (134-434); RBC 4.74 M/mm3 (4.00-5.60); RDW 15.1 % (11.9-15.9); WHITE BLOOD COUNT 6.1 K/mm3 (4.0-10.0)
[2024-03-22 14:59] LABS: INR 1.09 (0.83-1.09); PROTHROMBIN TIME (PATIENT) 12.5 SEC (9.7-13.0)
[2024-03-22 15:12] LABS: POTASSIUM 4.2 mmol/L (3.5-5.1)
[2024-03-22 15:14] LABS: CALCIUM 8.8 mg/dL (8.5-10.1)
[2024-03-22 15:15] LABS: ALBUMIN 3.4 g/dl (3.4-5.0); BLOOD UREA NITROGEN 18.2 mg/dL (7-18); MAGNESIUM 2.1 mg/dL (1.8-2.4)
[2024-03-22 15:18] LABS: CREATININE 0.8 mg/dL (0.55-1.3)
[2024-03-22 15:19] LABS: BILIRUBIN,TOTAL 0.6 mg/dL (0.2-1)
[2024-03-22 16:08] LABS: HIV INTERPRETATION NEGATIVE (NEGATIVE)
== END 2024-03-22 16:13 | disposition home or self-care (01) ==
LOC: JER 13:31
PROC: 3E033GC Introduction of Other Therapeutic Substance into Peripheral Vein, Percutaneous Approach (ICD-10-PCS; principal; 2024-03-22)
PROC: 3E033GC Introduction of Other Therapeutic Substance into Peripheral Vein, Percutaneous Approach (ICD-10-PCS; 2024-03-22)
DX: R10.13 Epigastric pain (principal); R11.2 Nausea with vomiting, unspecified
CPT/HCPCS: 36415; 71045-TC-FY; 80053; 83690; 83735; 84484; 85025; 85610; 85730; 86803; 87389; 93005; 93010; 99285-25

== ENCOUNTER 2024-08-23 11:08 | Emergency (ER) | payer BC, OTHER ==
[2024-08-23 11:37] VITALS: BP 127/89; PULSE 123; RESP 19; TEMP 100.2; BMI 56.2
[2024-08-23] MEDS ORDERED: ACETAMINOPHEN INJECTION 100 ML ONE (12:13)
[2024-08-23] MEDS: SODIUM CHLORIDE 1,000 ML IV STA (12:37)
[2024-08-23] MEDS: ACETAMINOPHEN 1000 MG/100 ML BAG IVPB ONE (12:37)
[2024-08-23] MEDS: CLINDAMYCIN 900 MG PREMIX IVPB 900 MG/50 ML BAG IVPB ONE (13:15)
[2024-08-23 13:22] LABS: HEMATOCRIT 40.2 % (35.4-49); HEMOGLOBIN 13.4 G/dL (11.7-16.9); RBC 4.81 10^6/uL (4.00-5.60); WHITE BLOOD COUNT 11.1 10^3/uL (4.0-10.8)
[2024-08-23 13:23] LABS: MCH 27.8 pg (25.7-33.7); MCHC 33.2 g/dl (32.0-35.9); MEAN CELL VOLUME 83.5 fl (80-96); MEAN PLT VOLUME 9.6 fl (7.5-11.1); PLATELET COUNT 165.8 10^3/uL (134-434); RDW 14.7 % (11.9-15.9)
[2024-08-23 13:42] LABS: CREATININE 0.8 mg/dl (0.6-1.3)
[2024-08-23 13:43] LABS: ALBUMIN 4.1 g/dl (3.4-5.0); BILIRUBIN,TOTAL 0.4 mg/dl (0.2-1); CALCIUM 9.3 mg/dl (8.5-10.1); POTASSIUM 4.2 mmol/L (3.5-5.1); TOT PROT 6.9 g/dl (6.4-8.2)
[2024-08-23] MEDS ORDERED: KETOROLAC TROMETHAMINE 15 MG/ML VIAL ONE (14:26)
[2024-08-23] MEDS: KETOROLAC TROMETHAMINE 15 MG/ML VIAL IVPUSH ONE (14:50)
== END 2024-08-23 15:51 | disposition home or self-care (01) ==
LOC: FER 11:08
PROC: 3E03329 Introduction of Other Anti-infective into Peripheral Vein, Percutaneous Approach (ICD-10-PCS; principal; 2024-08-23)
PROC: 3E033NZ Introduction of Analgesics, Hypnotics, Sedatives into Peripheral Vein, Percutaneous Approach (ICD-10-PCS; 2024-08-23)
DX: L03.115 Cellulitis of right lower limb (principal); R00.0 Tachycardia, unspecified; R50.9 Fever, unspecified; Z20.822 Contact with and (suspected) exposure to COVID-19
CPT/HCPCS: 0241U-QW; 36415; 80053; 85025; 87040; 99284-25; J0131

== ENCOUNTER 2024-10-26 20:44 | Emergency (ER) | payer BC, OTHER ==
[2024-10-26 20:55] VITALS: BP 145/92; PULSE 85; RESP 16; TEMP 98.1; BMI 56.2
[2024-10-26] MEDS ORDERED: CLINDAMYCIN HCL 150 MG CAPSULE (FP) ONE (22:16)
[2024-10-26] MEDS: CLINDAMYCIN HCL 150 MG CAPSULE (FP) PO ONE (22:22)
[2024-10-27] MEDS ORDERED: DOXYCYCLINE HYCLATE 100 MG CAPSULE PO ONE (00:26)
[2024-10-27] MEDS: DOXYCYCLINE HYCLATE 100 MG CAPSULE PO ONE (00:29)
== END 2024-10-27 00:33 | disposition home or self-care (01) ==
LOC: JER 20:44
DX: L03.115 Cellulitis of right lower limb (principal); E66.01 Morbid (severe) obesity due to excess calories; R50.9 Fever, unspecified
CPT/HCPCS: 73590-TC-RT-FY; 73610-TC-RT-FY; 73630-TC-RT-FY; 93970-TC; 99284-25